=== PATIENT | male | born 1990 | race Two or more races ===

== ENCOUNTER 2019-10-22 22:13 | Inpatient (IN) | payer MEDICAID, OTHER ==
[~2019-10-22] VITALS: Ht 160 cm; Wt 68.9 kg
--- NOTE | 2019-10-22 22:35 | NUR ---
PT AAOX4. BIBRA IVORIAN SPEAKING. PER RA PT HAS HX OF DIABETIES, CIRRHOSIS, AND ASCITES. PT C/O ABD DISTENTION AND "NEEDS TO BE DRAINED" NO ACUTE DISTRESS NOTED. MD AT BEDSIDE FOR EVAL. AWAITING ORDERS.
--- NOTE | 2019-10-22 22:48 | NUR ---
PHLEBTOMIST AT BEDSIDE FOR LABS
[2019-10-22 22:50] LABS: BASOPHILS % (AUTO) 0.5 % (0.0-2.0); EOSINOPHILS % (AUTO) 0.3 % (0.0-6.0); HEMATOCRIT 29 % (39-51); HEMOGLOBIN 9.1 g/dL (13.5-17.5); LYMPHOCYTES # (AUTO) 0.6 /CMM (0.8-4.8); LYMPHOCYTES % (AUTO) 12.8 % (20.0-44.0); MEAN CORPUSCULAR HGB CONC 32 g/dl (31.0-36.0); MEAN CORPUSCULAR VOLUME 102 fL (80-96); MONOCYTES # (AUTO) 0.2 /CMM (0.1-1.30); MONOCYTES % (AUTO) 4.3 % (2.0-12.0); NEUTROPHILS # (AUTO) 3.6 /CMM (1.8-8.9); NEUTROPHILS % (AUTO) 82.1 % (43.0-81.0); PLATELET COUNT (AUTO) 190 /CMM (150-450); RED BLOOD CELL COUNT(AUTO) 2.83 MIL/uL (4.5-6.0); WHITE BLOOD COUNT (AUTO) 4.3 K/uL (4.3-11.0)
--- NOTE | 2019-10-22 22:52 | NUR ---
AWAITING COVID SWAB. CALLED LAB.
--- NOTE | 2019-10-22 23:03 | NUR ---
BROUGHT TO CT
[2019-10-22 23:04] LABS: SERUM AMMONIA 115 umol/L (11-32)
[2019-10-22 23:07] LABS: APPEARANCE,URINE Clear (CLEAR); BILIRUBIN,URINE Negative (NEGATIVE); BLOOD, URINE Large Ery/uL (NEGATIVE); COLOR,URINE Yellow (YELLOW); KETONES,URINE Negative (NEGATIVE); LEUKOCYTE ESTERASE ,URINE Negative (NEGATIVE); NITRITE, URINE Negative (NEGATIVE); PH,URINE 5.5 (5.0-8.0); PROTEIN,URINE >=300 mg/dl (NEGATIVE); UGLUCOSE 500 MG/DL mg/dL (NEGATIVE); UROBILINOGEN,URINE 0.2 EU/dL (0.2)
[2019-10-22 23:08] LABS: CALCIUM, SERUM 7.9 mg/dL (8.5-10.1); CARBON DIOXIDE 13 mmol/L (21-32); CHLORIDE 98 mmol/L (98-107); CREATININE 3.6 mg/dL (0.6-1.3); POTASSIUM 4.9 mmol/L (3.5-5.1); SODIUM SERUM 125 mmol/L (136-145); UREA NITROGEN, BLOOD 61 mg/dL (7-18)
[2019-10-22 23:13] LABS: GLUCOSE 834 mg/dL (74-106)
[2019-10-22 23:15] LABS: ALANINE AMINOTRANSFERASE 39 U/L (12-78); ALBUMIN 1.7 g/dL (3.4-5.0); ALKALINE PHOSPHATASE 243 U/L (46-116); ASPARTATE AMINOTRANSFERASE 31 U/L (15-37); BILIRUBIN,DIRECT 0.1 mg/dL (0.0-0.2); BILIRUBIN,TOTAL 0.4 mg/dL (0.2-1.0); LIPASE 114 U/L (73-393); TOTAL PROTEIN, SERUM 6.1 g/dL (6.4-8.2)
[2019-10-22] MEDS ORDERED: INSULIN REGULAR, HUMAN 100 UNIT/ML 10 ML VIAL ONE (23:16)
--- NOTE | 2019-10-22 23:27 | NUR ---
BROUGHT BACK FROM CT
--- NOTE | 2019-10-22 23:29 | NUR ---
COVID SWAB SENT TO LAB
[2019-10-22] MEDS ORDERED: INSULIN REGULAR, HUMAN 100 UNIT in IV NS 0.9% 99 ML IV PRN ×2 (23:30)
[2019-10-22] MEDS ORDERED: INSULIN REGULAR, HUMAN 100 UNIT/ML 10 ML VIAL IV ONE (23:30)
[2019-10-22] MEDS ORDERED: IV NS 0.9% 1,000 ML BAG IV ONE (23:30)
[2019-10-22 23:31] LABS: BACTERIA,URINE Rare /HPF (None Seen); RBC,URINE 21-50 /HPF (0-2); SQUAMOUS EPITHELIAL CELL,UR Few /HPF (None Seen); WBC,URINE NONE SEEN /HPF (0-3)
--- NOTE | 2019-10-22 23:37 | NUR ---
UNABLE TO RECAL MEDS
[2019-10-23] VITALS (26 sets, daily range): BP systolic 99–132; BP diastolic 57–95
--- NOTE | 2019-10-23 00:12 | NUR ---
SECOND LINE ESTABLISHED ON L FOREARM 20G. AWAITING FOR BG CHECK @ 0030 TO START INSULIN DRIP.
--- NOTE | 2019-10-23 00:30 | NUR ---
BG 593 MD AWARE
[2019-10-23] MEDS ORDERED: INSULIN REGULAR, HUMAN 100 UNIT/ML 10 ML VIAL ONE (00:37)
--- NOTE | 2019-10-23 00:50 | NUR ---
593X2/100=11.86. AWARE TO START AT 12 UNITS/HR.
[2019-10-23] MEDS ORDERED: ACETAMINOPHEN 325 MG TABLET PO PRN (01:00)
[2019-10-23] MEDS ORDERED: Z GUARD REMEDY 2 OZ OINT TP PRN (01:00)
[2019-10-23] MEDS ORDERED: ONDANSETRON HCL/PF 4 MG/2 ML VIAL IVP PRN (01:00)
[2019-10-23] MEDS ORDERED: ALBUMIN 25% 12.5 GM/50 ML BOTTLE IV ONE (01:02)
--- NOTE | 2019-10-23 01:05 | NUR ---
REPORT GIVEN TO MARIA L FIGUEROA FOR ANDREA
--- NOTE | 2019-10-23 01:20 | NUR ---
PT TRANSFERED PER ACLS PROTOCOL
[2019-10-23] MEDS: INSULIN REGULAR, HUMAN 100 UNIT in IV NS 0.9% 99 ML IV PRN ×4 (01:30→11:18)
--- NOTE | 2019-10-23 01:30 | NUR ---
RECEIVED PATIENT IN NO ACUTE DISTRESS IN BED. PATIENT TRANSFERRED TO BED AND TOLERATED WELL. PATIENT HAS DISTENDED ABDOMEN WITH UMBILICUS HERNIA NOTED. PATIENT ON RA AND TOLERATING WELL. A/O X 4 AND ABLE TO MAKE NEEDS KNOWN. PATIENT HAS RIGHT AC 20G AND LEFT FOREARM 20G WITH INSULIN INFUSING AT 12 UNITS PER HOUR FROM ER. PER DR. SHAH WE ARE TO FOLLOW FORMULA OF BS X 2 / 100 = INSULIN RATE. BED IN LOW LOCK POSITION WITH RAILS UP X 2. WILL CONTINUE TO MONITOR.
[2019-10-23] MEDS: RIFAXIMIN 550 MG TABLET PO SCH ×3 (01:59→16:37)
[2019-10-23] MEDS: BLOOD SUGAR DIAGNOSTIC 1 EACH STRIP IN SCH ×20 (02:11→22:15)
[2019-10-23 02:41] LABS: CALCIUM, SERUM 8.1 mg/dL (8.5-10.1); CREATININE 3.6 mg/dL (0.6-1.3); PHOSPHORUS 5.2 mg/dL (2.5-4.9); POTASSIUM 4.2 mmol/L (3.5-5.1)
--- NOTE | 2019-10-23 03:00 | NUR ---
DR. SHAH PERFORMED PARACENTESIS ON THE LEFT ABDOMEN WITH TOTAL OF 7.5 LITERS OF YELLOW CLOUDY FLUID. PER DR. SHAH 1 BOTTLE SENT TO LAB FOR TESTING. PATIENT TOLERATED PROCEDURE WELL.
[2019-10-23] MEDS ORDERED: PHENYLEPHRINE 10 MG/ML VIAL ONE (03:06)
[2019-10-23] MEDS ORDERED: IV PREMIX NS +20MEQ KCL 1 L IV ONE (04:04)
[2019-10-23] MEDS: Potassium Chloride 20 MEQ in IV NS 0.9% 1,000 ML IV PRN ×2 (04:18→12:23)
[2019-10-23 05:00] LABS: CALCIUM, SERUM 8.6 mg/dL (8.5-10.1); CREATININE 3.7 mg/dL (0.6-1.3); MAGNESIUM 2.1 mg/dL (1.8-2.4); PHOSPHORUS 5.1 mg/dL (2.5-4.9); POTASSIUM 4.1 mmol/L (3.5-5.1)
--- NOTE | 2019-10-23 07:35 | NUR ---
REVENUE MANAGER: pt. A/Ox2/Danish speaker, basis Colombian level, no c/o now, no pain/dolor, abdomen is soft, O2sat. over 96%, SR, SBP WNL, on Insulin gtt f/u rate formula BGx2/100/6 units/hr now, accuV q1h, voids, NPO/water ok
--- NOTE | 2019-10-23 07:57 | NUR ---
med recon nurse notes pt south korean speaking only, ask pt with a educational psychology professor if he takes any medications and he says he does, but doesn't remember the names and no one is home as stated. pt teaching provided with south korean staff translating to write down his list of medications and put it in his wallet.
[2019-10-23] MEDS: ENOXAPARIN SODIUM 30 MG/0.3 ML DISP.SYRIN SQ SCH (08:21)
[2019-10-23 08:30] LABS: CALCIUM, SERUM 8.3 mg/dL (8.5-10.1); CREATININE 3.5 mg/dL (0.6-1.3); MAGNESIUM 1.8 mg/dL (1.8-2.4); PHOSPHORUS 4.9 mg/dL (2.5-4.9); POTASSIUM 3.9 mmol/L (3.5-5.1)
--- NOTE | 2019-10-23 09:35 | NUR ---
TECHNICAL OPERATIONS MANAGER: is in room/updated with pt.current condition, VS, BG/insulin gtt rate/accuV q1h, I/O, paracentesis, NPO, see new orders
[2019-10-23 11:56] LABS: CALCIUM, SERUM 8.2 mg/dL (8.5-10.1); CREATININE 3.2 mg/dL (0.6-1.3); MAGNESIUM 1.9 mg/dL (1.8-2.4); PHOSPHORUS 4.5 mg/dL (2.5-4.9); POTASSIUM 3.9 mmol/L (3.5-5.1)
--- NOTE | 2019-10-23 12:00 | NUR ---
ROVING INSPECTOR: NPO status, ok for water, got 200ml water
--- NOTE | 2019-10-23 13:50 | NUR ---
CHISELER HEAD: updated with pt.last 3 hrs B/122/120, Insulin gtt rate, IVF, NPO/pt is asking to start diet, labs, AGap , BMP at 14,17,05, ordered: add D5 to IVF, if Anion Gap below 14, start: one dose Lantus 20 units s/q, , stop Insulin drip, start accuV AC&HS with aggressive ISS, start diabetic diet
[2019-10-23 15:00] LABS: CALCIUM, SERUM 8.1 mg/dL (8.5-10.1); CREATININE 3.2 mg/dL (0.6-1.3); MAGNESIUM 1.8 mg/dL (1.8-2.4); PHOSPHORUS 4.4 mg/dL (2.5-4.9); POTASSIUM 4.1 mmol/L (3.5-5.1)
--- NOTE | 2019-10-23 15:30 | NUR ---
OILFIELD PLANT AND FIELD OPERATOR: BG 99, GAP 19, called pharmacy to get D5NS with K 20 meq bag, notified , hold insulin gtt now
[2019-10-23] MEDS: Potassium Chloride 20 MEQ in IV D5/ 0.9% NACL 1,000 ML IV PRN (15:37)
--- NOTE | 2019-10-23 16:15 | NUR ---
OIL RECOVERY UNIT OPERATOR: V0TMors started 40 mins ago, BG157 now, paged to resume Insulin gtt?, pt.is A/Ox4, got info re POC, orders, meds with Persian translation, no c/o now, no pain, SR, SBP over 100/[id number], O2sat. over 96%
[2019-10-23 17:24] LABS: CALCIUM, SERUM 7.7 mg/dL (8.5-10.1); CREATININE 3.2 mg/dL (0.6-1.3); MAGNESIUM 1.7 mg/dL (1.8-2.4); PHOSPHORUS 4.5 mg/dL (2.5-4.9)
--- NOTE | 2019-10-23 17:54 | NUR ---
AIRPLANE GAS TANK LINER ASSEMBLER: pt refused for PM/skin care/bedbath
--- NOTE | 2019-10-23 19:30 | NUR ---
RN OPENING NOTES received the cleit resting in bed. VS wnl. On external telemonitor, NSR. RA, sat 100%, BG 142, the client is in insulin drip. D5 NS & K/20meq. No signs of hypo/hyper glycemia. The client denies pain, no s/s of pain. No s/s of distress. All safety mechanisms in place will continue to monitor.
[2019-10-23 20:38] LABS: CALCIUM, SERUM 7.8 mg/dL (8.5-10.1); CREATININE 3.1 mg/dL (0.6-1.3); MAGNESIUM 1.7 mg/dL (1.8-2.4); PHOSPHORUS 4.3 mg/dL (2.5-4.9)
[2019-10-23 22:19] LABS: APPEARANCE,URINE SL CLOUDY (CLEAR); BILIRUBIN,URINE NEGATIVE (NEGATIVE); BLOOD, URINE LARGE Ery/uL (NEGATIVE); COLOR,URINE YELLOW (YELLOW); KETONES,URINE NEGATIVE (NEGATIVE); LEUKOCYTE ESTERASE ,URINE NEGATIVE (NEGATIVE); NITRITE, URINE NEGATIVE (NEGATIVE); PROTEIN,URINE >=300 mg/dl (NEGATIVE); UGLUCOSE 500 MG/DL mg/dL (NEGATIVE); UROBILINOGEN,URINE 0.2 EU/dL (0.2)
[2019-10-23 22:32] LABS: CREATININE, URINE 93.6 MG/DL (30.0-125.0)
[2019-10-23 22:58] LABS: EOSINOPHIL,URINE None Seen
[2019-10-23 23:19] LABS: BACTERIA,URINE Few /HPF (None Seen); RBC,URINE 20-25 /HPF (0-2); SQUAMOUS EPITHELIAL CELL,UR Rare /HPF (None Seen)
[2019-10-23 23:26] LABS: URINE TOTAL PROTEIN 1867.3 mg/dL (0-11.9)
[2019-10-24] VITALS (26 sets, daily range): BP systolic 91–127; BP diastolic 39–88
[2019-10-24] MEDS: BLOOD SUGAR DIAGNOSTIC 1 EACH STRIP IN SCH ×24 (00:08→23:10)
[2019-10-24] MEDS: Potassium Chloride 20 MEQ in IV D5/ 0.9% NACL 1,000 ML IV PRN ×3 (00:26→17:42)
[2019-10-24 00:56] LABS: CALCIUM, SERUM 7.7 mg/dL (8.5-10.1); CREATININE 3.1 mg/dL (0.6-1.3); MAGNESIUM 1.8 mg/dL (1.8-2.4); PHOSPHORUS 4.4 mg/dL (2.5-4.9); POTASSIUM 4.1 mmol/L (3.5-5.1)
[2019-10-24 03:26] LABS: CALCIUM, SERUM 7.6 mg/dL (8.5-10.1); CREATININE 3.1 mg/dL (0.6-1.3); MAGNESIUM 1.7 mg/dL (1.8-2.4); PHOSPHORUS 4.4 mg/dL (2.5-4.9); POTASSIUM 4.3 mmol/L (3.5-5.1)
[2019-10-24 05:10] LABS: BASOPHILS % (AUTO) 0.8 % (0.0-2.0); EOSINOPHILS % (AUTO) 1.4 % (0.0-6.0); HEMATOCRIT 25 % (39-51); HEMOGLOBIN 8.2 g/dL (13.5-17.5); LYMPHOCYTES # (AUTO) 1.4 /CMM (0.8-4.8); LYMPHOCYTES % (AUTO) 33.4 % (20.0-44.0); MEAN CORPUSCULAR HGB CONC 33 g/dl (31.0-36.0); MEAN CORPUSCULAR VOLUME 97 fL (80-96); MONOCYTES # (AUTO) 0.2 /CMM (0.1-1.30); MONOCYTES % (AUTO) 5.2 % (2.0-12.0); NEUTROPHILS # (AUTO) 2.4 /CMM (1.8-8.9); NEUTROPHILS % (AUTO) 59.2 % (43.0-81.0); PLATELET COUNT (AUTO) 145 /CMM (150-450); RED BLOOD CELL COUNT(AUTO) 2.62 MIL/uL (4.5-6.0); WHITE BLOOD COUNT (AUTO) 4.1 K/uL (4.3-11.0)
[2019-10-24 05:25] LABS: ALBUMIN 1.7 g/dL (3.4-5.0); BILIRUBIN,TOTAL 0.4 mg/dL (0.2-1.0); CALCIUM, SERUM 7.7 mg/dL (8.5-10.1); MAGNESIUM 1.9 mg/dL (1.8-2.4); PHOSPHORUS 4.3 mg/dL (2.5-4.9); POTASSIUM 4.3 mmol/L (3.5-5.1); TOTAL PROTEIN, SERUM 4.9 g/dL (6.4-8.2)
--- NOTE | 2019-10-24 06:52 | NUR ---
RN CLOSING NOTES No change of condition during the shift. continues in insulin drip. AG gap is 16. No s/s of hypo or hyperglycemia. no s/s of distress. Will endorse the next shift for ANDREA.
--- NOTE | 2019-10-24 08:00 | NUR ---
DEDICATED LOCAL TRUCK DRIVER: pt.is A/Ox3, no c/o now, no pain, oriented for fall/injury prevention measures, SR, SBP [id number], O2sat.over 95% on RA, last q1h BG 3 results: 123/109/106, still on insulin drip, last Anion GAP: 16, will continue BMP,MG,Phos f/u prev.orders/waiting MD, getting C4POyovl 20meq K@125ml/h, multiple voids by report, NPO status except water
[2019-10-24] MEDS: ENOXAPARIN SODIUM 30 MG/0.3 ML DISP.SYRIN SQ SCH (08:49)
[2019-10-24] MEDS: RIFAXIMIN 550 MG TABLET PO SCH ×2 (08:49→17:20)
[2019-10-24] MEDS: INSULIN REGULAR, HUMAN 100 UNIT in IV NS 0.9% 99 ML IV PRN ×2 (09:10)
--- NOTE | 2019-10-24 09:50 | NUR ---
CLEAN OUT DRILLER HELPER: called to pharmacy to get D5NS with K bag, PT is in room for eval/Tx
[2019-10-24 10:03] LABS: CALCIUM, SERUM 7.9 mg/dL (8.5-10.1); CREATININE 2.9 mg/dL (0.6-1.3); MAGNESIUM 1.8 mg/dL (1.8-2.4); PHOSPHORUS 4.5 mg/dL (2.5-4.9); POTASSIUM 4.5 mmol/L (3.5-5.1)
--- NOTE | 2019-10-24 13:59 | NUR ---
CHEMICAL TREATMENT PLANT TECHNICIAN: pt. is rest, no c/o now, no pain, SR, SBP WNL, O2sat. over 97%, still NPO, asking to start diet, getting D5NS with KCl 20 meq@150ml/hr, waiting , still on Insulin gtt, last 3 B/133/120, last GAP 17, Ammonia 138, blood gram+ cocci in clusters, will s/w
--- NOTE | 2019-10-24 15:30 | NUR ---
ECLECTIC DOCTOR: is in room/unit, updated with pt.current condition, VS, I/O, labs, ammonia 186, GAP results, meds, Insulin drip, IVF: [id number] 20meqKcl@150ml/h, NPO status, pt.multiple Qs to get food, blood gram+ cocci in clusters, said: continue NPO, ok ti give strict water, ordered: change IVF to 100ml/hr, BMP,MG,Phos q3h, if GAP below 14 follow miscellaneous order from 10/22
--- NOTE | 2019-10-24 15:31 | NUR ---
TRANSIT CLERK: : continue same formula Insulin drip
--- NOTE | 2019-10-24 15:40 | NUR ---
MEDICINE WORKER: Pt.got explanation with Cuban translation re POC, orders, continue NPO status, meds, lab results
[2019-10-24 15:49] LABS: CALCIUM, SERUM 7.7 mg/dL (8.5-10.1); CREATININE 2.8 mg/dL (0.6-1.3); MAGNESIUM 1.8 mg/dL (1.8-2.4); PHOSPHORUS 4.4 mg/dL (2.5-4.9); POTASSIUM 4.6 mmol/L (3.5-5.1)
--- NOTE | 2019-10-24 16:50 | NUR ---
VIDEO GAME ENGINEER: Lactulose 10mg PO PRN q6h in eMAR, paged : confirmed start same dose/time, ammonia level 186
--- NOTE | 2019-10-24 16:51 | NUR ---
TEXTILE FINISHER: prev.note correction: Lactulose 20gm
[2019-10-24] MEDS: LACTULOSE 10 G/15 ML UDC (PYXIS) PO PRN (17:20)
--- NOTE | 2019-10-24 17:50 | NUR ---
ROENTGENOLOGIST: pt.is rest, no c/o, no pain, SR, SBP WNL, O2sat. over 97%, voids, refused for PM/bedbath care, elevated legs d/t edema
[2019-10-24 19:33] LABS: CALCIUM, SERUM 7.9 mg/dL (8.5-10.1); MAGNESIUM 1.7 mg/dL (1.8-2.4); PHOSPHORUS 4.6 mg/dL (2.5-4.9); POTASSIUM 4.5 mmol/L (3.5-5.1)
--- NOTE | 2019-10-24 19:41 | NUR ---
RN OPENING NOTES The client remains stable with BG at 89 at 1800, and 103 at 1900. client is A/O x4. Client exhibits no s/s of hypo or hyperglycemia, no s/s/ of digress or pain, client denies pain at this time. Client is on RA, sat 98% to 100%. VS wnl, client is on external telemonitor, NSR, HR 77. The client continues in insulin drip, with an anion gap goal of 14 per hospitalist. Will continue to monitor, all safety mechanisms in place. Will continue to monitor. Bed locked in the lowest position, call light within reach, and armoring machine operator rails up x2.
[2019-10-24] MEDS ORDERED: Potassium Chloride 20 MEQ in IV NS 0.9% 1,000 ML IV PRN (22:00)
--- NOTE | 2019-10-24 23:00 | NUR ---
per Dr Vaca, start D10 to increase glucose levels. The order is in the eEMAR.
[2019-10-24] MEDS: IV PREMIX NS +20MEQ KCL 1 L IV SCH (23:10)
[2019-10-24] MEDS: IV 10% DEXTROSE 1,000 ML IV PRN (23:16)
[2019-10-24 23:24] LABS: CALCIUM, SERUM 7.6 mg/dL (8.5-10.1); CREATININE 2.9 mg/dL (0.6-1.3); PHOSPHORUS 4.7 mg/dL (2.5-4.9); POTASSIUM 4.6 mmol/L (3.5-5.1)
[2019-10-25] VITALS (24 sets, daily range): BP systolic 104–138; BP diastolic 54–93
[2019-10-25] MEDS: BLOOD SUGAR DIAGNOSTIC 1 EACH STRIP IN SCH ×26 (00:23→23:15)
[2019-10-25 02:00] LABS: CALCIUM, SERUM 7.5 mg/dL (8.5-10.1); CREATININE 2.8 mg/dL (0.6-1.3); MAGNESIUM 1.7 mg/dL (1.8-2.4); PHOSPHORUS 4.6 mg/dL (2.5-4.9); POTASSIUM 4.7 mmol/L (3.5-5.1)
[2019-10-25] MEDS: LACTULOSE 10 G/15 ML UDC (PYXIS) PO PRN ×2 (04:40→10:53)
[2019-10-25 05:28] LABS: BASOPHILS % (AUTO) 0.6 % (0.0-2.0); HEMATOCRIT 27 % (39-51); HEMOGLOBIN 8.9 g/dL (13.5-17.5); LYMPHOCYTES # (AUTO) 1.4 /CMM (0.8-4.8); LYMPHOCYTES % (AUTO) 29.4 % (20.0-44.0); MEAN CORPUSCULAR HGB CONC 33 g/dl (31.0-36.0); MEAN CORPUSCULAR VOLUME 97 fL (80-96); MONOCYTES # (AUTO) 0.3 /CMM (0.1-1.30); MONOCYTES % (AUTO) 5.7 % (2.0-12.0); NEUTROPHILS # (AUTO) 2.9 /CMM (1.8-8.9); NEUTROPHILS % (AUTO) 62.3 % (43.0-81.0); PLATELET COUNT (AUTO) 183 /CMM (150-450); RED BLOOD CELL COUNT(AUTO) 2.79 MIL/uL (4.5-6.0); WHITE BLOOD COUNT (AUTO) 4.6 K/uL (4.3-11.0)
[2019-10-25 05:43] LABS: CALCIUM, SERUM 7.8 mg/dL (8.5-10.1); CREATININE 2.8 mg/dL (0.6-1.3); MAGNESIUM 1.8 mg/dL (1.8-2.4); PHOSPHORUS 4.6 mg/dL (2.5-4.9); POTASSIUM 4.6 mmol/L (3.5-5.1)
--- NOTE | 2019-10-25 06:22 | NUR ---
RN NOTES The client refused to have his 0600 blood glucose check.
[2019-10-25 07:23] LABS: MAGNESIUM 1.8 mg/dL (1.8-2.4); PHOSPHORUS 4.7 mg/dL (2.5-4.9)
--- NOTE | 2019-10-25 07:30 | NUR ---
RECEIVED PATIENT IN BED. NO ACUTE DISTRESS NOTED. PATIENT ALERT & ORIENTED X4. PATIENT ON ROOM AIR, SATURATING WELL AT 100%, BREATHING EVEN AND UNLABORED. PATIENT ON AUTO CLOCKS REPAIRER, SINUS RHYTHM NOTED WITH HEART RATE IN 70S. PATIENT NPO STATUS OBSERVED. PATIENT R. FOREARM IV ACCESS INTACT, PATENT, FLUSHED WELL. PATIENT INSULIN DRIP RUNNING AT 2.6UNITS/HR, WILL CONTINUE TO DO HOURLY ACCUCHECK AND TITRATE ORDERED. PATIENT SAFETY MAINTAINED. CALL LIGHT WITHIN REACH. WILL CONTINUE TO MONITOR.
--- NOTE | 2019-10-25 07:37 | NUR ---
RN CLOSING NOTES No change of condition at this time. Client remains stable with s/s of distress. last BG were 127,144, 137. Client continues in insulin drip per hospitalist order. A complete report has been given to the incoming nurse for the plan of care. All safety mechanisms in place.
[2019-10-25] MEDS: ENOXAPARIN SODIUM 30 MG/0.3 ML DISP.SYRIN SQ SCH (08:10)
[2019-10-25] MEDS: RIFAXIMIN 550 MG TABLET PO SCH ×2 (08:10→17:01)
[2019-10-25] MEDS: INSULIN REGULAR, HUMAN 100 UNIT in IV NS 0.9% 99 ML IV PRN ×2 (09:48)
[2019-10-25] MEDS: IV PREMIX NS +20MEQ KCL 1 L IV SCH (10:53)
[2019-10-25] MEDS: IV 10% DEXTROSE 1,000 ML IV PRN ×2 (13:02→22:36)
--- NOTE | 2019-10-25 13:39 | NUR ---
ACCUCHECK MACHINE NOT TRANSFERRING DATA (BLOOD GLUCOSE LEVELS) TO THE COMPUTER (LABS SECTION). LAB NOTIFIED, IT NOTIFIED- SPOKE TO JENNIFER CRAIG AT IT. TICKET #[id number]. AWAITING CALL BACK Addendum: 10/25/19 at 1341 by RAMA LANDRY RN AMEND- BLOOD GLUCOSE LEVELS RECORDED IN IV SPREADSHEET, WELL ON PERSONAL PAPER.
[2019-10-25 15:00] LABS: CALCIUM, SERUM 7.9 mg/dL (8.5-10.1); CREATININE 2.7 mg/dL (0.6-1.3); POTASSIUM 4.8 mmol/L (3.5-5.1)
--- NOTE | 2019-10-25 15:13 | NUR ---
MOLD ENGRAVER NOTE DR MOORE AT BEDSIDE, AWARE THAT ANION GAP 18, ON INSULIN DRIP, ON IVF D10W AT 75 ML AND NS WITH 20 MEQ KCL , STATED OK TO CONT TO ADMINISTER, AWAITING FOR BMP RESULT ,WILL RELAY RESULT TO DR MOORE
--- NOTE | 2019-10-25 15:46 | NUR ---
MARKETING ASSISTANT NOTE NOTIFIED TO DR MOORE THAT ANION GAP IS 19 FOR 1430 ,NO NEW ORDER GIVEN AT THIS TIME ALSO ASSISTED TO BSC ,ABLE TO MAKE BM, KEEP CLEAN DRY , ALL NEEDS ATTENDED ,NOT IN DISTRESS
--- NOTE | 2019-10-25 16:49 | NUR ---
PATIENT AMMONIA LEVEL OF 146. DR. MOORE NOTIFIED. DR. MOORE ORDERED LACTULOSE PRN TO BE CHANGED TO LACTULOSE SCHEDULED, Q6H
[2019-10-25] MEDS: LACTULOSE 10 G/15 ML UDC (PYXIS) PO SCH ×2 (17:01→23:17)
--- NOTE | 2019-10-25 18:26 | NUR ---
PATIENT IN BED. NO ACUTE DISTRESS NOTED. PATIENT ALERT & ORIENTED X4. PATIENT ON ROOM AIR, SATURATING WELL AT 100%, BREATHING EVEN AND UNLABORED. PATIENT ON FIREWORKS ASSEMBLY SUPERVISOR, SINUS RHYTHM NOTED WITH HEART RATE IN 90S. PATIENT NPO STATUS OBSERVED. PATIENT RIGHT FOREARM IV ACCESS INTACT, PATENT, FLUSHED WELL. PATIENT LEFT FOREARM IV ACCESS INTACT, PATENT, FLUSHED WELL. PATIENT INSULIN DRIP RUNNING AT 2.6UNITS/HR, WILL CONTINUE TO DO HOURLY ACCUCHECK AND TITRATE ORDERED. PATIENT SAFETY MAINTAINED. CALL LIGHT WITHIN REACH. WILL ENDORSE PLAN OF CARE TO ONCOMING NURSE FOR CONTINUITY OF CARE.
--- NOTE | 2019-10-25 19:25 | NUR ---
EMS DRIVER NOTES Received pt resting in bed. AOx4. Able to make needs know. On external telemonitor, NSR. RA, sat 100% on RA. RAC and LFA piv lines intact and flushes well, w/ insulin drip and D10 and NS & K/20meq. No signs of hypo/hyper glycemia. The client denies pain, no s/s of pain. NAD. no SOB. All safety measures in place. Bed locked and in the lowest position. Will continue to monitor.
--- NOTE | 2019-10-25 21:20 | NUR ---
PER Sakina SHAH DNP TO START CCHO W/45G DIET 2139: PER PABLO DNP TO INCREASE D10 IVF TO 100ML/HR FROM 75ML/HR
[2019-10-26] VITALS (24 sets, daily range): BP systolic 106–128; BP diastolic 64–96
[2019-10-26] MEDS: BLOOD SUGAR DIAGNOSTIC 1 EACH STRIP IN SCH ×24 (01:00→23:14)
[2019-10-26] MEDS: IV PREMIX NS +20MEQ KCL 1 L IV SCH ×2 (01:01→14:31)
[2019-10-26] MEDS: IV 10% DEXTROSE 1,000 ML IV PRN ×2 (03:18→17:01)
[2019-10-26] MEDS: LACTULOSE 10 G/15 ML UDC (PYXIS) PO SCH ×4 (06:01→23:40)
--- NOTE | 2019-10-26 07:15 | NUR ---
RN OPENING NOTE Received patient asleep in bed appears calm and relaxed no signs of distress. On room air tolerating well. Patient is AO x4 khmer speaking but understands a little bit of Russian. No co pain or discomfort. Tele monitor reading ST 100-110 bpm. Bedside commode noted. Has RAC running KCL 20meq on NS @ 75ml/hr and D10 @ 100ml/hr. LAC running Regular Insulin @ 4u/hr. Safety measures reinforced. Call light within reach. Bed locked and on lowest position. Will cont to monitor.
[2019-10-26 08:38] LABS: BASOPHILS % (AUTO) 0.8 % (0.0-2.0); EOSINOPHILS % (AUTO) 2.1 % (0.0-6.0); HEMATOCRIT 28 % (39-51); HEMOGLOBIN 8.8 g/dL (13.5-17.5); LYMPHOCYTES # (AUTO) 1.3 /CMM (0.8-4.8); LYMPHOCYTES % (AUTO) 27.4 % (20.0-44.0); MEAN CORPUSCULAR HGB CONC 32 g/dl (31.0-36.0); MEAN CORPUSCULAR VOLUME 98 fL (80-96); MONOCYTES # (AUTO) 0.3 /CMM (0.1-1.30); MONOCYTES % (AUTO) 5.9 % (2.0-12.0); NEUTROPHILS # (AUTO) 2.9 /CMM (1.8-8.9); NEUTROPHILS % (AUTO) 63.8 % (43.0-81.0); PLATELET COUNT (AUTO) 199 /CMM (150-450); RED BLOOD CELL COUNT(AUTO) 2.83 MIL/uL (4.5-6.0); WHITE BLOOD COUNT (AUTO) 4.6 K/uL (4.3-11.0)
[2019-10-26] MEDS: ENOXAPARIN SODIUM 30 MG/0.3 ML DISP.SYRIN SQ SCH ×2 (08:55→09:00)
[2019-10-26] MEDS: RIFAXIMIN 550 MG TABLET PO SCH ×2 (08:55→17:05)
--- NOTE | 2019-10-26 09:00 | NUR ---
NPO STATUS PUT ORDERED
[2019-10-26 09:25] LABS: CALCIUM, SERUM 7.9 mg/dL (8.5-10.1); CREATININE 2.8 mg/dL (0.6-1.3); POTASSIUM 4.8 mmol/L (3.5-5.1)
[2019-10-26] MEDS ORDERED: INSU100V7 SQ (13:31)
[2019-10-26] MEDS ORDERED: [UNRECOGNIZED DRUG - CODE] PO (13:31)
[2019-10-26] MEDS ORDERED: BLOO-538 (13:31)
[2019-10-26] MEDS ORDERED: [UNRECOGNIZED DRUG - OTHER] PO (13:31)
[2019-10-26] MEDS ORDERED: MULT-439 PO (13:31)
--- NOTE | 2019-10-26 14:00 | NUR ---
PARACENTESIS ORDERED BY DR MOORE. PLACED ORDER AND SPOKE TO ULTRASOUND. CONSENT WAS SIGNED. 5250ML REMOVED FROM ABDOMEN. TOLERATED WELL. VITAL SIGNS WITHIN NORMAL LIMITS.
--- NOTE | 2019-10-26 14:15 | NUR ---
PER TERESA NO NEED TO SUBMIT SPECIMEN TO LABS
[2019-10-26] MEDS: INSULIN REGULAR, HUMAN 100 UNIT in IV NS 0.9% 99 ML IV PRN ×2 (16:11)
--- NOTE | 2019-10-26 18:50 | NUR ---
RN CLOSING NOTE Patient asleep in bed appears calm and relaxed no signs of distress. On room air tolerating well. Patient is AO x4 arabic speaking but understands a little bit of Cape Verdean. No co pain or discomfort. Tele monitor reading ST 90-100 bpm. All due meds given vital signs within normal limits. RAC running KCL 20meq on NS @ 75ml/hr and D10 @ 100ml/hr. LAC running Regular Insulin @ 3u/hr. Latest BS at 1800 is 171. No signs of uncontrolled blood sugar. Maintained within normal limits. Remained on NPO status. Anion Gap 15. Safety measures reinforced. Call light within reach. Bed locked and on lowest position. Will endorse to retail shift manager nurse.
--- NOTE | 2019-10-26 19:20 | NUR ---
UTILITIES AND MAINTENANCE SUPERVISOR NOTES Received pt resting in bed. AOx4. Able to make needs know. On external telemonitor, NSR. RA, sat 100% on RA. RAC and LFA PIV lines intact and flush well w/ insulin gtt and D10 and NS & K/20meq. No signs of hypo/hyper glycemia. The client denies pain, no s/s of pain. NAD. no SOB. All safety measures in place. Bed locked and in the lowest position. Will continue to monitor.
[2019-10-27] VITALS (22 sets, daily range): BP systolic 60–159; BP diastolic 39–85
[2019-10-27] MEDS: BLOOD SUGAR DIAGNOSTIC 1 EACH STRIP IN SCH ×20 (00:01→22:53)
[2019-10-27] MEDS: IV 10% DEXTROSE 1,000 ML IV PRN ×2 (04:00→13:54)
[2019-10-27] MEDS: IV PREMIX NS +20MEQ KCL 1 L IV SCH ×2 (04:01→17:02)
[2019-10-27 05:19] LABS: BASOPHILS % (AUTO) 0.9 % (0.0-2.0); EOSINOPHILS % (AUTO) 2.4 % (0.0-6.0); HEMATOCRIT 26 % (39-51); HEMOGLOBIN 8.5 g/dL (13.5-17.5); LYMPHOCYTES # (AUTO) 1.3 /CMM (0.8-4.8); LYMPHOCYTES % (AUTO) 31.6 % (20.0-44.0); MEAN CORPUSCULAR HGB CONC 33 g/dl (31.0-36.0); MEAN CORPUSCULAR VOLUME 98 fL (80-96); MONOCYTES # (AUTO) 0.3 /CMM (0.1-1.30); MONOCYTES % (AUTO) 6.6 % (2.0-12.0); NEUTROPHILS # (AUTO) 2.3 /CMM (1.8-8.9); NEUTROPHILS % (AUTO) 58.5 % (43.0-81.0); PLATELET COUNT (AUTO) 159 /CMM (150-450); RED BLOOD CELL COUNT(AUTO) 2.66 MIL/uL (4.5-6.0)
[2019-10-27] MEDS: LACTULOSE 10 G/15 ML UDC (PYXIS) PO SCH ×3 (06:00→17:52)
[2019-10-27 06:26] LABS: CALCIUM, SERUM 7.7 mg/dL (8.5-10.1); CREATININE 2.7 mg/dL (0.6-1.3); MAGNESIUM 1.8 mg/dL (1.8-2.4); PHOSPHORUS 4.7 mg/dL (2.5-4.9); POTASSIUM 4.5 mmol/L (3.5-5.1)
[2019-10-27 08:20] LABS: *SPE A/G RATIO 0.7 (0.7-1.7); *SPE ALBUMIN 1.8 g/dL (2.9-4.4); *SPE ALPHA-1-GLOBULIN 0.2 g/dL (0.0-0.4); *SPE ALPHA-2-GLOBULIN 0.8 g/dL (0.4-1.0); *SPE BETA GLOBULIN 0.9 g/dL (0.7-1.3); *SPE GLOBULIN, TOTAL 2.7 g/dL (2.2-3.9); *SPE M-SPIKE 0.1 g/dL (Not Observed); *SPEGAMMA GLOBULIN 0.8 g/dL (0.4-1.8)
--- NOTE | 2019-10-27 08:20 | NUR ---
DIRECTOR CALL NOTES PATIENT IN BED A/OX4 NORTH KOREAN SPEAKER, UNDERSTANDS DOMINICAN. NO ISOLATION. NO SOB AND DISCOMFORT NOTED AT THIS TIME. DISTENDED ABDOMEN NOTED. PATIENT IS ON INSULIN DRIP, 10% DEXTROSE, POTASSIUM CHLORIDE. HR 79 SINUS RHYTHM. CALL LIGHT WITHIN REACH. BED AT THE LOWEST POSITION LOCKED. WILL CONTINUE TO MONITOR THE PATIENT.
[2019-10-27 09:07] LABS: COMPLEMENT C3, SERUM 90 mg/dL (82-167); COMPLEMENT C4, SERUM 24 mg/dL (14-44)
[2019-10-27] MEDS: ENOXAPARIN SODIUM 30 MG/0.3 ML DISP.SYRIN SQ SCH (09:12)
[2019-10-27] MEDS: RIFAXIMIN 550 MG TABLET PO SCH ×2 (09:12→17:02)
--- NOTE | 2019-10-27 10:40 | NUR ---
LAMINATING PRESS OPERATOR NOTES PT AT BED SIDE AND PATIENT WAS ABLE TO STAND UP AND SEAT ON THE COMMODE .
[2019-10-27] MEDS: INSULIN REGULAR, HUMAN 100 UNIT in IV NS 0.9% 99 ML IV PRN ×2 (11:07)
[2019-10-27 11:25] LABS: CALCIUM, SERUM 7.7 mg/dL (8.5-10.1); CREATININE 2.6 mg/dL (0.6-1.3); POTASSIUM 4.6 mmol/L (3.5-5.1)
[2019-10-27 16:57] LABS: CALCIUM, SERUM 7.8 mg/dL (8.5-10.1); CREATININE 2.6 mg/dL (0.6-1.3); POTASSIUM 4.6 mmol/L (3.5-5.1)
--- NOTE | 2019-10-27 17:10 | NUR ---
RECRUITMENT MANAGER NOTES INFORMED HOSPITALIST ROBERT ABOUT ANION GAP 10. PER HOSPITALIST AGGRESSIVE SSU AND CC DIET.
--- NOTE | 2019-10-27 17:27 | NUR ---
JEWELRY DIPPER NOTES PER TREAD CUTTER ROBERT, D5NS 75ML/HR AND KCL 75ML /HR.
[2019-10-27] MEDS: IV D5/ 0.9% NACL 1,000 ML IV PRN ×2 (17:39→18:17)
--- NOTE | 2019-10-27 18:00 | NUR ---
CULTURE MEDIA LABORATORY ASSISTANT NOTES REGULAR INSULIN NOT AVAILABLE, NEW ORDER, REPORTED TO 3W NURSE ROMANO TO OBTAIN THE INSULIN FROM PHARMACY.
[2019-10-27 18:15] LABS: *ANA ANTI-CENTROMERE B AB <0.2 AI (0.0-0.9); *ANA ANTI-DNA(DS) AB, QN 1 IU/mL (0-9); *ANA ANTI-JO-1 <0.2 AI (0.0-0.9); *ANA ANTICHROMATIN ANTIBODY <0.2 AI (0.0-0.9); *ANA RNP ANTIBODIES <0.2 AI (0.0-0.9); *ANA SJOGREN'S ANTI-SS-A <0.2 AI (0.0-0.9); *ANA SJOGREN'S ANTI-SS-B <0.2 AI (0.0-0.9); *ANAANTI-SCLERODERMA-70 AB <0.2 AI (0.0-0.9); *ANASMITH AB <0.2 AI (0.0-0.9)
--- NOTE | 2019-10-27 18:33 | NUR ---
TAIL BOARD MAN NOTES REPORT GIVEN TO ROSALINA Cortez NURSE PATIENT WILL BE TRANSFERRED TO ROOM 316.
--- NOTE | 2019-10-27 18:35 | NUR ---
CAR REPAIRER PULLMAN NOTES PATIENT SAFELY TRANSFERRED TO 3W BY RN , ALL BELONGINGS RETURNED TO THE PATIENT.
--- NOTE | 2019-10-27 19:02 | NUR ---
SANE NURSE NOTES RECEIVED TRANSFER FROM ICU AND REPORT. PATIENT IN MEDICALLY STABLE CONDITION. WILL ENDORSE TO CLINCHING MACHINE OPERATOR NURSE.
--- NOTE | 2019-10-27 19:45 | NUR ---
RN NOTES RECEIVED PATIENT, WEAK, RESTING COMFORTABLY IN BED, NO SIGNS OF ACUTE RESPIRATORY OR CARDIAC DISTRESS, SAFETY MEASURES IN PLACE, INSTRUCTED PATIENT TO USE CALL LIGHT FOR ASSISTANCE GOING TO THE TOILET OR BEDSIDE COMMODE. ALL NEEDS ANTICIPATED. WILL CONTINUE TO MONITOR ACCORDINGLY.
[2019-10-27] MEDS ORDERED: [UNRECOGNIZED DRUG - OTHER] PO SCH (22:00)
[2019-10-27] MEDS: INSULIN GLARGINE, 100 UNIT/ML CARTRIDGE SQ SCH (22:49)
[2019-10-27] MEDS: *INSULIN REGULAR(HUMULIN R)HUM 100 UNIT/ML VIAL SQ PRN (22:50)
[2019-10-28] VITALS (8 sets, daily range): BP systolic 86–130; BP diastolic 53–91
[2019-10-28] MEDS: LACTULOSE 10 G/15 ML UDC (PYXIS) PO SCH ×4 (00:15→18:11)
[2019-10-28 00:42] LABS: CALCIUM, SERUM 7.5 mg/dL (8.5-10.1); CREATININE 2.7 mg/dL (0.6-1.3); POTASSIUM 4.7 mmol/L (3.5-5.1)
[2019-10-28] MEDS: IV PREMIX NS +20MEQ KCL 1 L IV SCH (06:42)
[2019-10-28] MEDS: BLOOD SUGAR DIAGNOSTIC 1 EACH STRIP IN SCH ×4 (06:51→22:00)
[2019-10-28] MEDS: INSULIN REGULAR, HUMAN 100 UNIT/ML 3 ML VIAL SQ PRN (06:52)
--- NOTE | 2019-10-28 06:56 | NUR ---
RN NOTES ALL NEEDS ATTENDED AND MET, ABLE TO REST AND SLEPT AT INTERVALS, SAFETY MEASURES IN PLACE, ASPIRATION PRECAUTION EMPHASIZED, KEPT CLEAN WARM DRY AND COMFORTABLE, ASSISTED USING BEDSIDE COMMODE, TOILETING AND URINAL AT BEDSIDE. CALL LIGHT WITHIN EASY REACH, BED IN LOW LOCKED POSITION. WILL ENDORSE TO AM NURSE FOR CONTINUITY OF CARE.
--- NOTE | 2019-10-28 08:02 | NUR ---
RN CLOSING NOTE Patient AAOX4 in bed appears calm and relaxed no signs of distress. On room air tolerating well. Icelandic speaking but understands a little bit of Kiswahili. No c/o pain or discomfort. Tele monitor . vital signs within normal limits. RAC running KCL 20meq on NS @ 75ml/hr and D10 @ 100ml/hr. Latest BS at 216. No signs of uncontrolled blood sugar. Maintained within normal limits. on CCHO diet. Anion . Safety measures reinforced. Call light within reach. Bed locked and on lowest position. Will continue to monitor.
[2019-10-28 08:08] LABS: CALCIUM, SERUM 7.8 mg/dL (8.5-10.1); CREATININE 2.6 mg/dL (0.6-1.3); MAGNESIUM 1.7 mg/dL (1.8-2.4); PHOSPHORUS 4.9 mg/dL (2.5-4.9); POTASSIUM 4.7 mmol/L (3.5-5.1)
[2019-10-28 08:21] LABS: BASOPHILS # (AUTO) 0.1 /CMM (0.0-0.2); BASOPHILS % (AUTO) 0.9 % (0.0-2.0); EOSINOPHILS % (AUTO) 1.8 % (0.0-6.0); HEMATOCRIT 28 % (39-51); HEMOGLOBIN 8.9 g/dL (13.5-17.5); LYMPHOCYTES # (AUTO) 1.1 /CMM (0.8-4.8); LYMPHOCYTES % (AUTO) 20.9 % (20.0-44.0); MEAN CORPUSCULAR HGB CONC 32 g/dl (31.0-36.0); MEAN CORPUSCULAR VOLUME 99 fL (80-96); MONOCYTES # (AUTO) 0.3 /CMM (0.1-1.30); MONOCYTES % (AUTO) 5.9 % (2.0-12.0); NEUTROPHILS # (AUTO) 3.8 /CMM (1.8-8.9); NEUTROPHILS % (AUTO) 70.5 % (43.0-81.0); PLATELET COUNT (AUTO) 175 /CMM (150-450); RED BLOOD CELL COUNT(AUTO) 2.79 MIL/uL (4.5-6.0); WHITE BLOOD COUNT (AUTO) 5.4 K/uL (4.3-11.0)
[2019-10-28] MEDS ORDERED: Medication Not On Formulary EA (Multivitamins W-Minerals (One Daily Complete) 1 EACH) PO SCH (09:00)
[2019-10-28] MEDS ORDERED: IV NS 0.9% 1,000 ML IV SCH (09:30)
[2019-10-28] MEDS: RIFAXIMIN 550 MG TABLET PO SCH ×2 (09:41→17:51)
[2019-10-28] MEDS: MULTIVIT W/MINERALS 1 TAB TABLET PO SCH (09:41)
[2019-10-28] MEDS: ENOXAPARIN SODIUM 30 MG/0.3 ML DISP.SYRIN SQ SCH (09:48)
[2019-10-28] MEDS: INSULIN GLARGINE, 100 UNIT/ML CARTRIDGE SQ SCH ×2 (09:57→22:06)
[2019-10-28] MEDS: *INSULIN REGULAR(HUMULIN R)HUM 100 UNIT/ML VIAL SQ PRN ×3 (11:53→22:09)
[2019-10-28] MEDS: CITRIC ACID/SODIUM CITRATE (BICITRA)15 ML UDC PO SCH ×2 (17:51→20:37)
[2019-10-28 18:09] LABS: ABG PCO2 19.3 mmHg (35.0-45.0); ABG PH 7.193 (7.350-7.450); ABG PO2 104.2 mmHg (75.0-100.0); AaDO2 22.4 mmHg; COHb 0.3 % (0.5-1.5); O2Hb 96.7 % (94.0-97.0); SITE, ABG Right Radial
--- NOTE | 2019-10-28 18:50 | NUR ---
RN CLOSING NOTE Patient AAOX4 in bed appears calm and relaxed no signs of distress. On room air tolerating well. Greek speaking . No c/o pain or discomfort. Tele monitor . vital signs within normal limits. RAC running on NS 0.9% @ 75ml/hr . BS CHECK as order. No signs of uncontrolled blood sugar. Insulin given per sliding scale Pt had an ABG done with Critical results reported to Dr with no new order at this time . on [facility] diet. Safety measures reinforced. Call light within reach. Bed locked and on lowest position. Will continue to monitor.
--- NOTE | 2019-10-28 19:07 | NUR ---
APARTMENT RENTAL AGENT NOTES Notified Bridgette HARKINS of critical ABG labs results. Per , NNO at this time.
--- NOTE | 2019-10-28 19:38 | NUR ---
RN NOTES RECEIVED PATIENT, WEAK, RESTING COMFORTABLY IN BED, NO SIGNS OF ACUTE RESPIRATORY OR CARDIAC DISTRESS, SAFETY MEASURES IN PLACE, INSTRUCTED PATIENT TO USE CALL LIGHT FOR ASSISTANCE GOING TO THE TOILET OR BEDSIDE COMMODE. IV ACCESS INTACT AND PATENT. ALL NEEDS ANTICIPATED. WILL CONTINUE TO MONITOR ACCORDINGLY.
--- NOTE | 2019-10-28 21:10 | NUR ---
RN NOTES REPORT GIVEN TO CRYSTAL DELANEY FOR CONTINUITY OF CARE. PATIENT IS RESTING COMFORTABBLY AT THIS TIME SAFETY MEASURES IN PLACE. ALL NEEDS ANTICIPATED.
--- NOTE | 2019-10-28 21:30 | NUR ---
tele director of accreditation notes Received report from another nurse Chey and seen pt in bed for continuity of care. not in any distress noted at this time. denies any pain or any discomfort. kept him warm and comfortable at all times. will continue monitoring. place call light at reach.
--- NOTE | 2019-10-28 22:12 | NUR ---
tele end finder twisting department notes blood sugar 191, 3 units of insulin kayla sq as ordered. no signs of hyper /hpo glycemia noted. will continue monitoring.
[2019-10-29] VITALS: BP 116/85
--- NOTE | 2019-10-29 | NUR ---
AUDIO/VISUAL MANAGER NOTES PT SLEPT THIS TIME WITHOUT ANY DISTRESS NOTED. RESPIRATION EVEN AND NON-LABORED. KEPT HIM WARM AND COMFORTABLE AT ALL TIMES. PLACE CALL LIGHT AT REACH. WILL CONTINUE MONITORING.
[2019-10-29] MEDS: LACTULOSE 10 G/15 ML UDC (PYXIS) PO SCH ×4 (00:16→17:52)
[2019-10-29 04:00] VITALS: BP 144/87
[2019-10-29 06:39] LABS: BASOPHILS # (AUTO) 0.1 /CMM (0.0-0.2); BASOPHILS % (AUTO) 1.3 % (0.0-2.0); EOSINOPHILS % (AUTO) 1.6 % (0.0-6.0); HEMATOCRIT 27 % (39-51); HEMOGLOBIN 8.7 g/dL (13.5-17.5); LYMPHOCYTES # (AUTO) 1.2 /CMM (0.8-4.8); LYMPHOCYTES % (AUTO) 18.6 % (20.0-44.0); MEAN CORPUSCULAR HGB CONC 32 g/dl (31.0-36.0); MEAN CORPUSCULAR VOLUME 99 fL (80-96); MONOCYTES # (AUTO) 0.4 /CMM (0.1-1.30); MONOCYTES % (AUTO) 6.5 % (2.0-12.0); NEUTROPHILS # (AUTO) 4.6 /CMM (1.8-8.9); PLATELET COUNT (AUTO) 154 /CMM (150-450); RED BLOOD CELL COUNT(AUTO) 2.77 MIL/uL (4.5-6.0); WHITE BLOOD COUNT (AUTO) 6.4 K/uL (4.3-11.0)
[2019-10-29] MEDS: BLOOD SUGAR DIAGNOSTIC 1 EACH STRIP IN SCH ×4 (06:41→21:00)
[2019-10-29] MEDS: INSULIN REGULAR, HUMAN 100 UNIT/ML 3 ML VIAL SQ PRN ×3 (06:51→17:52)
[2019-10-29 06:52] LABS: MAGNESIUM 1.8 mg/dL (1.8-2.4); PHOSPHORUS 5.5 mg/dL (2.5-4.9); POTASSIUM 4.7 mmol/L (3.5-5.1)
[2019-10-29 07:03] LABS: THYROID STIMULATING HORMONE 10.169 uIU/mL (0.358-3.74)
--- NOTE | 2019-10-29 07:15 | NUR ---
tele flight tower dispatcher closing notes pt resting comfortably in bed after he drink one cup of coffee. blood sugar checked done 168, 3 units of insulin given as ordered. no signs of hypo/ hyper glycemia noted. all due meds given as ordered. all needs met.Tele SR per monitor. Stable throughout the night and slept well. Place call light at reach. will endorse to am nurse for continuity of care.
--- NOTE | 2019-10-29 07:35 | NUR ---
TELE/RN NOTE THE PATIENT IS RECEIVED IN BED. PATIENT IS ALERT AND ORIENTED X3. IN ROOM AIR AND DENIES SOB. RESPIRATION REGULAR AND UNLABORED. DENIES PAIN. THE PATIENT IN NO APPARENT DISTRESS. EXTERNAL TELE BOX READING IS SR 95. RAC G 18 PATENT AND SALINE LOCKED, LFA G 20 PATENT AND NORMAL SALINE INFUSING AT 75ML/HR. NO S/S INFILTRATION NOTED. BED LOW AND LOCKED. SIDE RAILS UP X3. CALL LIGHT WITHIN REACH. WILL CONTINUE TO MONITOR.
--- NOTE | 2019-10-29 10:13 | NUR ---
TELE/RN NOTE 0900 DUE MEDICATIONS ARE NOT GIVEN YET DUE TO PATIENT GETTING IMAGING DONE AT THE RADIOLOGY DEPARTMENT. WILL ADMINISTER THE MEDICATIONS SOON THE PATIENT IS IN THE UNIT.
[2019-10-29] MEDS: MULTIVIT W/MINERALS 1 TAB TABLET PO SCH (10:26)
[2019-10-29] MEDS: FOLIC ACID 1 MG TABLET PO SCH (10:27)
[2019-10-29] MEDS: RIFAXIMIN 550 MG TABLET PO SCH ×2 (10:27→17:52)
[2019-10-29] MEDS: CITRIC ACID/SODIUM CITRATE (BICITRA)15 ML UDC PO SCH ×4 (10:27→20:53)
--- NOTE | 2019-10-29 10:27 | NUR ---
TELE/RN NOTE THE PATIENT IS BACK FROM RADIOLOGY DEPARTMENT AND IN STABLE CONDITION. WILL ADMINISTER MORNING MEDICATIONS.
[2019-10-29] MEDS: ENOXAPARIN SODIUM 30 MG/0.3 ML DISP.SYRIN SQ SCH (10:42)
[2019-10-29] MEDS: INSULIN GLARGINE, 100 UNIT/ML CARTRIDGE SQ SCH ×2 (10:42→20:54)
--- NOTE | 2019-10-29 11:14 | NUR ---
TELE/RN NOTE SHAILESH JONES IS MADE AWARE OF CO2 LEVEL OF 10. PER STRUCTURAL STEEL TRADES WORKER NO NEW ORDERS.
[2019-10-29] MEDS ORDERED: RIFAXIMIN 550 MG TABLET PO SCH (17:00)
--- NOTE | 2019-10-29 18:49 | NUR ---
TELE/RN NOTE THE PATIENT ALERT AND ORIENTED X3. DENIES PAIN. IN ROOM AIR AND SATURATION IS AT 96%. DENIES SOB. RESPIRATION REGULAR AND UNLABORED. RAC G 20 AND LFA G 20 BOTH PATENT AND SALINE LOCKED. BED LOW AND LOCKED. SIDE RAILS UP X3. CALL LIGHT WITHIN REACH. WILL ENDORSE TO NUCLEAR WORKER TECHNICIAN. Addendum: 10/29/19 at 1906 by CRISTY HAMEED RN TELE/RN NOTE TELE BOX READING IS SR 100.
--- NOTE | 2019-10-29 19:27 | NUR ---
TELE/RN OPENING NOTES RECEIVED PATIENT IN BED, AWAKE, ALERT X2, REQUIRE ORIENTATION AND SAFETY REMINDERS FOR ANY CHANGES. WITH SITTER, ON ROOM AIR, BED LOCKED, CALL LIGHTS WITHIN REACH, WITH [facility] MONITOR,RECEIVED ENDORSEMENT FROM AM RN FOR ANDREA,
--- NOTE | 2019-10-29 19:32 | NUR ---
TELE/RN NOTES ON TELE ST 103, PATIENT ASSISTED TO BATHROOM, ABLE TO WALK WITH ASSIST, ABDOMEN DISTENDED.
[2019-10-29 20:00] VITALS: BP 129/88
--- NOTE | 2019-10-29 20:44 | NUR ---
BLOOD SUGAR CHECK AT 174, PATIENT HAD DINNER,
[2019-10-30] VITALS: BP 124/76
[2019-10-30] MEDS: LACTULOSE 10 G/15 ML UDC (PYXIS) PO SCH ×6 (00:29→21:00)
[2019-10-30 04:00] VITALS: BP 114/76
--- NOTE | 2019-10-30 05:11 | NUR ---
TELE/RN NOTES PATIENT VERBALIZED UNDERSTANDING ON IMPORTANCE OF COMPLIANCE TO MEDICATION, PATIENT REPORTED THAT HE HAS BEEN CONSTANTLY GOING TO THE BATHROOM SEVERAL TIMES ALREADY TO HAVE BM AND WOULD PREFER TO TAKE IT A LITTLE LATER IN AM. ASLEEP AND RESTING COMFORTABLY.
[2019-10-30] MEDS: BLOOD SUGAR DIAGNOSTIC 1 EACH STRIP IN SCH ×4 (06:08→22:05)
[2019-10-30 06:29] LABS: BASOPHILS # (AUTO) 0.1 /CMM (0.0-0.2); EOSINOPHILS % (AUTO) 1.8 % (0.0-6.0); HEMATOCRIT 25 % (39-51); HEMOGLOBIN 7.8 g/dL (13.5-17.5); LYMPHOCYTES # (AUTO) 1.8 /CMM (0.8-4.8); LYMPHOCYTES % (AUTO) 29.7 % (20.0-44.0); MEAN CORPUSCULAR HGB CONC 32 g/dl (31.0-36.0); MEAN CORPUSCULAR VOLUME 98 fL (80-96); MONOCYTES # (AUTO) 0.5 /CMM (0.1-1.30); MONOCYTES % (AUTO) 7.9 % (2.0-12.0); NEUTROPHILS # (AUTO) 3.6 /CMM (1.8-8.9); NEUTROPHILS % (AUTO) 59.6 % (43.0-81.0); PLATELET COUNT (AUTO) 143 /CMM (150-450); RED BLOOD CELL COUNT(AUTO) 2.52 MIL/uL (4.5-6.0)
--- NOTE | 2019-10-30 06:31 | NUR ---
310-1 TELE/RN NOTES ATTENDED TO ALL NEEDS, MONITORED FOR SAFETY, BED LOCKED, CALL LIGHTS WITHIN REACH. WILL ENDORSE TO AM RN FOR ANDREA.
[2019-10-30 06:47] LABS: CALCIUM, SERUM 7.6 mg/dL (8.5-10.1); CREATININE 3.1 mg/dL (0.6-1.3); MAGNESIUM 1.9 mg/dL (1.8-2.4); PHOSPHORUS 5.7 mg/dL (2.5-4.9); POTASSIUM 4.3 mmol/L (3.5-5.1)
--- NOTE | 2019-10-30 07:30 | NUR ---
RN NOTES RECEIVED PATIENT IN BED RESTING COMFORTABLY IN MODERATE HIGH BACK REST. A/O X2. ON RA, TOLERATING WELL. NO SIGNS OF DISTRESS NOTED AT THIS TIME, IV ACCESS ON RAC#20 AND LFA #20, PATENT AND INTACT. ON TELE MONITOR WITH CURRENT READING OF ST WITH HR OF 100'S. SAFETY MEASURES IN PLACE, BED IN LOWEST LOCKED POSITION, CALL LIGHTS WITHIN REACH, WILL CONTINUE TO MONITOR.
[2019-10-30 08:00] VITALS: BP 129/84
[2019-10-30] MEDS: RIFAXIMIN 550 MG TABLET PO SCH ×2 (08:45→16:55)
[2019-10-30] MEDS: MULTIVIT W/MINERALS 1 TAB TABLET PO SCH (08:45)
[2019-10-30] MEDS: CITRIC ACID/SODIUM CITRATE (BICITRA)15 ML UDC PO SCH ×5 (08:45→21:57)
[2019-10-30] MEDS: FOLIC ACID 1 MG TABLET PO SCH (08:45)
[2019-10-30] MEDS: HEPARIN SODIUM, PORCINE 5000 UNITS/1 ML VIAL SQ SCH ×2 (08:49→21:57)
[2019-10-30] MEDS: INSULIN GLARGINE, 100 UNIT/ML CARTRIDGE SQ SCH ×2 (08:49→22:07)
[2019-10-30 09:06] LABS: AFP, TUMOR MARKER 1.8 ng/mL (0.0-8.3)
--- NOTE | 2019-10-30 11:00 | NUR ---
RN NOTES SEEN AND EXAMINED BY INNA JONES NP. ORDER TO GIVE LACTULOSE ENEMA, ORDERS MADE AND CARRIED OUT. WILL CONTINUE TO MONITOR.
[2019-10-30] MEDS ORDERED: LACTULOSE 10 G/15 ML UDC (PYXIS) PO SCH (11:30)
[2019-10-30] MEDS ORDERED: LACTULOSE UDC 200 G in SODIUM CHLORIDE IRRIG SOLUTION 400 ML IR ONE (12:00)
--- NOTE | 2019-10-30 12:41 | NUR ---
RN NOTES PATIENT REFUSED LACTULOSE ENEMA, AND NOON MEDS. INNA JONES NP MADE AWARE. WILL CONTINUE TO MONITOR.
[2019-10-30 16:00] VITALS: BP 129/88
[2019-10-30] MEDS: INSULIN REGULAR, HUMAN 100 UNIT/ML 3 ML VIAL SQ PRN (16:58)
--- NOTE | 2019-10-30 16:58 | NUR ---
RN NOTES PATIENT REFUSED BICITRA AND LACTULOSE, EXPLAINED RISKS AND BENEFITS BUT STILL PATIENT REFUSED, HOSPITALIST MADE AWARE. WILL CONTINUE TO MONITOR.
--- NOTE | 2019-10-30 19:19 | NUR ---
RN NOTES PATIENT IN BED RESTING COMFORTABLY IN MODERATE HIGH BACK REST. A/O X2. ON RA, TOLERATING WELL. NO SIGNS OF DISTRESS NOTED THROUGHOUT THE SHIFT, IV ACCESS ON RAC#20 AND LFA #20, PATENT AND INTACT. SAFETY MEASURES IN PLACE, BED IN LOWEST LOCKED POSITION, CALL LIGHTS WITHIN REACH, WILL ENDORSE TO COMMERCIAL PHOTOGRAPHER NURSE FOR ANDREA.
--- NOTE | 2019-10-30 19:20 | NUR ---
MS/RN OPENING NOTES: RECEIVED PATIENT IN BED RESTING COMFORTABLY IN BED. A/O X2. ON RA, TOLERATING WELL. NO SIGNS OF DISTRESS NOTED AT THIS TIME, IV ACCESS ON RAC#20 AND LFA #20, PATENT AND INTACT. NO COMPLAINS OF PAIN AT THIS TIME. SAFETY MEASURES IN PLACE, BED IN LOWEST LOCKED POSITION, CALL LIGHTS WITHIN REACH, WILL CONTINUE TO MONITOR.
[2019-10-30 20:00] VITALS: BP 130/83
[2019-10-30] MEDS: MORPHINE SULFATE INJ 2 MG/ML DISP.SYRIN IV PRN (22:08)
--- NOTE | 2019-10-30 22:08 | NUR ---
MS/RN NOTES: PT COMPLAINED OF PAIN ON HIS MANDO. LEGS. VSS. ADMINISTERED MORPHINE 2MG IVP ORDERED FOR PAIN. WILL CONTINUE TO MONITOR ACCORDINGLY.
--- NOTE | 2019-10-31 00:31 | NUR ---
MS/RN NOTES: REPORT GIVEN TO HENRY [place] FOR ANDREA. PT STABLE.
--- NOTE | 2019-10-31 00:44 | NUR ---
RN NOTES: -AT 222O RECEIVED ENDORSEMENT FROM KAVITA/RN, PATIENT WAS LYING COMFORTABLY IN BED, HE JUST HAD HIS MORPHINE AT 2208, A/OX3-4, KYRGYZ SPEAKING ONLY. ABLE TO COMMUNICATE WITH LITTLE SCOTTISH, IV SITE PATENT ON RAC G#20 AND LFA G#20, HE HAS DISTENDED ABDOMEN.WITH BRP, USING URINAL, ORIENTED TO UNIT AND STAFF,FALL SAFETY AND ASPIRATION OBSERVED, BED LOW AND LOCKED, CALL LIGHT KEPT WITHIN EASY REACH.
--- NOTE | 2019-10-31 04:04 | NUR ---
RN NOTES: ASLEEP IN THE NIGHT, NO CALLS MADE, KEPT ON CLOSE WATCH, CALL LIGHT WITHIN EASY REACH.NO PAIN OR DISCOMFORT.
[2019-10-31 06:00] LABS: BASOPHILS % (AUTO) 0.4 % (0.0-2.0); EOSINOPHILS % (AUTO) 0.6 % (0.0-6.0); HEMATOCRIT 26 % (39-51); HEMOGLOBIN 8.2 g/dL (13.5-17.5); LYMPHOCYTES # (AUTO) 1.3 /CMM (0.8-4.8); LYMPHOCYTES % (AUTO) 13.2 % (20.0-44.0); MEAN CORPUSCULAR HGB CONC 32 g/dl (31.0-36.0); MEAN CORPUSCULAR VOLUME 98 fL (80-96); MONOCYTES # (AUTO) 0.7 /CMM (0.1-1.30); MONOCYTES % (AUTO) 6.8 % (2.0-12.0); NEUTROPHILS # (AUTO) 7.8 /CMM (1.8-8.9); PLATELET COUNT (AUTO) 171 /CMM (150-450); RED BLOOD CELL COUNT(AUTO) 2.62 MIL/uL (4.5-6.0); WHITE BLOOD COUNT (AUTO) 9.8 K/uL (4.3-11.0)
[2019-10-31] MEDS: DEXTROSE 50%-WATER 50 ML DISP.SYRIN IV PRN (06:40)
--- NOTE | 2019-10-31 07:03 | NUR ---
RN NOTES: 0635- BLOOD SUGAR CHECKED 44, PATIENT IS A/OX3-4, GIVEN 3 ORANGE JUICE, REPEATED RBS-47, BLOOD SUGAR DID NOT IMPROVE AT ALL, GIVEN D50% 50 ML IV, TOLERATED, BLOOD SUGAR RE-CHECKED AFTER 15 MIN RBS-196, BULK TANK [employer] DOCTOR JACQUELINE NOTIFIED.
[2019-10-31] MEDS: BLOOD SUGAR DIAGNOSTIC 1 EACH STRIP IN SCH ×4 (07:42→21:41)
--- NOTE | 2019-10-31 07:44 | NUR ---
RN NOTES: PATIENT GO BACK TO SLEEP, AWAITING FOR HIS BREAKFAST TO BE SERVED, ENDORSED FOR CONTINUITY OF CARE AND OBSERVED FOR SIGN OF HYPO/HYPERGLYCEMIA, STILL WITH BOARD LIKE ABDOMEN, HARD TO TOUCH AND DISTENDED., FOR BLOOD TEST THIS MORNING, TO REPEAT LACTULOSE AND RIFAXIMIN IN THE MORNING, RD F/U ON 11/03/19.
[2019-10-31 08:00] VITALS: BP 118/78
[2019-10-31] MEDS: MORPHINE SULFATE INJ 2 MG/ML DISP.SYRIN IV PRN ×2 (08:10→11:16)
--- NOTE | 2019-10-31 08:10 | NUR ---
MS RN NOTES PATIENT REPORTS PAIN TO RIGHT THIGH AND GROIN AREA 10/10 PRN MORPHINE ADMINISTERED, WILL CONTINUE TO MONITOR.
--- NOTE | 2019-10-31 08:40 | NUR ---
MS RN NOTES PATIENT REPORTS PAIN HAS DECREASED AND NOW TOLERABLE. WILL CONTINUE TO MONITOR.
[2019-10-31] MEDS: INSULIN GLARGINE, 100 UNIT/ML CARTRIDGE SQ SCH ×2 (09:00→21:00)
[2019-10-31] MEDS: LACTULOSE 10 G/15 ML UDC (PYXIS) PO SCH ×4 (09:00→21:41)
[2019-10-31] MEDS: MULTIVIT W/MINERALS 1 TAB TABLET PO SCH (09:16)
[2019-10-31] MEDS: CITRIC ACID/SODIUM CITRATE (BICITRA)15 ML UDC PO SCH ×4 (09:16→21:43)
[2019-10-31] MEDS: FOLIC ACID 1 MG TABLET PO SCH (09:16)
[2019-10-31] MEDS: RIFAXIMIN 550 MG TABLET PO SCH ×2 (09:16→17:18)
[2019-10-31] MEDS: HEPARIN SODIUM, PORCINE 5000 UNITS/1 ML VIAL SQ SCH ×2 (09:17→21:42)
[2019-10-31 10:25] LABS: CALCIUM, SERUM 7.6 mg/dL (8.5-10.1); CREATININE 3.4 mg/dL (0.6-1.3); MAGNESIUM 1.9 mg/dL (1.8-2.4); PHOSPHORUS 5.8 mg/dL (2.5-4.9)
--- NOTE | 2019-10-31 10:40 | NUR ---
RN NOTES PATIENT COMPLAINS PAIN RO RIGHT THIGH AGAIN 01/15. INNA CASH MADE AWARE WAITING FOR ORDERS.
--- NOTE | 2019-10-31 11:15 | NUR ---
RN NOTES PATIENT SEEN AND EVALUATED BY DR. UMAÑA ORDERS FOR ST OF THE RIGHT HIP. INNA CASH ORDERED ULTRASOUND OF THE ABD. AND PELVIS. ORDERS NOTED AND CARRIED OUT.
--- NOTE | 2019-10-31 14:30 | NUR ---
MS RN NOTES INNA CASH MADE AWARE OF ABDOMINAL ULTRASOUND RESULTS AND HIP CT RESULTS ORDERS TO ORDER STAT PARACENTESIS.
[2019-10-31 16:00] VITALS: BP_SYST 133; BP_SYST 145; BP_DIAS 79; BP_DIAS 81
--- NOTE | 2019-10-31 18:33 | NUR ---
MS RN NOTES PATIENT IN BED RESTING NO SOB OR ACUTE DISTRESS NOTED. PATIENT ALERT, ORIENTED X4. ALL DUE MEDICATIONS ADMINISTERED. ALL NEEDS MET. PATIENT S/P PARACENTESIS WITH 5L OUTPUT. PATIENT REPORTS FEELING BETTER. NO ACUTE CHANGES NOTED DURING AM SHIFT. WILL ENDORSE CARE TO PM SHIFT.
[2019-10-31 20:00] VITALS: BP 113/67
--- NOTE | 2019-10-31 20:00 | NUR ---
MS RN OPENING NOTE: Received patient resting in bed comfortably. Patient denies pain or discomfort. On Room air; no SOB. Patient is in no signs of distress. Breathing is equal and unlabored. Noted IV access on right AC #20 gauge and Left forearm 20 gauge. Both IV sites flushes well, patent, no redness, or infiltration. Safety measures in place. Bed in lowest level, brakes are on, side rails x2 are up, and call light is within reach. Will continue to monitor and continue care of plan.
--- NOTE | 2019-10-31 21:00 | NUR ---
MS RN NOTE: Patient glucose level is 90. Held Lantus to prevent hypoglycemia.
[2019-10-31] MEDS: *INSULIN REGULAR(HUMULIN R)HUM 100 UNIT/ML VIAL SQ PRN (23:12)
--- NOTE | 2019-11-01 03:16 | NUR ---
MS RN NOTE: Patient temp 101.1. Gave patient ice water and PRN Tylenol for fever. Will follow up and monitor.
--- NOTE | 2019-11-01 04:16 | NUR ---
MS RN NOTE: Reassessed patients temperature. Temp 98.8.
--- NOTE | 2019-11-01 06:40 | NUR ---
MS RN CLOSING NOTE: Patient in bed resting comfortably, awake and alert. On Room air; no SOB. Patient is in no signs of distress. Breathing is equal and unlabored. Safety measures in place. Bed in lowest level, brakes are on, side rails x2 are up, and call light is within reach. Will endorse to morning shift.
--- NOTE | 2019-11-01 06:57 | NUR ---
MS RN NOTE: Patient glucose 66. Gave patient orange juice. Will monitor and recheck.
[2019-11-01] MEDS: BLOOD SUGAR DIAGNOSTIC 1 EACH STRIP IN SCH ×4 (06:58→22:08)
[2019-11-01] MEDS: INSULIN REGULAR, HUMAN 100 UNIT/ML 3 ML VIAL SQ PRN ×3 (06:58→17:35)
[2019-11-01] MEDS ORDERED: LIDOCAINE 1% INJ 50 ML MDV IJ ONE (07:00)
--- NOTE | 2019-11-01 07:20 | NUR ---
MS RN NOTE: Rechecked glucose. Glucose 109. Endorsed Glucose levels to the next shift.
[2019-11-01 07:31] LABS: CALCIUM, SERUM 7.5 mg/dL (8.5-10.1); CREATININE 4.2 mg/dL (0.6-1.3); MAGNESIUM 1.7 mg/dL (1.8-2.4); POTASSIUM 4.4 mmol/L (3.5-5.1)
[2019-11-01 07:44] LABS: BASOPHILS % (AUTO) 0.5 % (0.0-2.0); EOSINOPHILS % (AUTO) 0.5 % (0.0-6.0); HEMATOCRIT 21 % (39-51); LYMPHOCYTES # (AUTO) 1.9 /CMM (0.8-4.8); LYMPHOCYTES % (AUTO) 21.6 % (20.0-44.0); MEAN CORPUSCULAR HGB CONC 33 g/dl (31.0-36.0); MEAN CORPUSCULAR VOLUME 98 fL (80-96); MONOCYTES # (AUTO) 0.5 /CMM (0.1-1.30); MONOCYTES % (AUTO) 5.9 % (2.0-12.0); NEUTROPHILS # (AUTO) 6.2 /CMM (1.8-8.9); NEUTROPHILS % (AUTO) 71.5 % (43.0-81.0); PLATELET COUNT (AUTO) 117 /CMM (150-450); RED BLOOD CELL COUNT(AUTO) 2.12 MIL/uL (4.5-6.0); WHITE BLOOD COUNT (AUTO) 8.7 K/uL (4.3-11.0)
--- NOTE | 2019-11-01 08:00 | NUR ---
MS RN NOTES PATIENT IN BED RESTING NO SOB OR ACUTE DISTRESS NOTED. PATIENT ALERT, ORIENTED X4. PERIPHERAL IV INTACT PATENT. BED IN LOW LOCKED POSITION. WILL CONTINUE TO MONITOR.
[2019-11-01 08:08] VITALS: BP 101/47
[2019-11-01] MEDS: INSULIN GLARGINE, 100 UNIT/ML CARTRIDGE SQ SCH ×2 (09:00→21:41)
[2019-11-01] MEDS: RIFAXIMIN 550 MG TABLET PO SCH ×2 (09:02→18:23)
[2019-11-01] MEDS: FOLIC ACID 1 MG TABLET PO SCH (09:02)
[2019-11-01] MEDS: MULTIVIT W/MINERALS 1 TAB TABLET PO SCH (09:02)
[2019-11-01] MEDS: CITRIC ACID/SODIUM CITRATE (BICITRA)15 ML UDC PO SCH ×4 (09:03→21:42)
[2019-11-01] MEDS: LACTULOSE 10 G/15 ML UDC (PYXIS) PO SCH ×4 (09:03→21:43)
[2019-11-01] MEDS: HEPARIN SODIUM, PORCINE 5000 UNITS/1 ML VIAL SQ SCH ×2 (09:04→21:00)
[2019-11-01 10:05] LABS: HEMOGLOBIN 6.8 g/dL (13.5-17.5)
[2019-11-01 10:10] LABS: BAND % (MANUAL) 17 % (0.0-5.0); LYMPHOCYTES % (MANUAL) 19 % (16-48); MONOCYTES % (MANUAL) 8 % (0-11.0); NEUTROPHILS % (MANUAL) 56 (42-76)
[2019-11-01 11:44] LABS: HEMOGLOBIN 7.4 g/dL (13.5-17.5)
[2019-11-01] MEDS ORDERED: Magnesium 1GM/D5W 100ML PREMIX 100 ML IV SCH (12:00)
[2019-11-01 16:00] VITALS: BP 108/68
[2019-11-01] MEDS ORDERED: RIFAXIMIN 550 MG TABLET ONE (18:21)
--- NOTE | 2019-11-01 19:33 | NUR ---
MS RN NOTES PATIENT IN BED RESTING NO SOB OR ACUTE DISTRESS NOTED. NO ACUTE CHANGES NOTED. ALL DUE MEDICATIONS ADMINISTERED. ALL NEEDS MET. ENDORSED CARE TO PM SHIFT.
--- NOTE | 2019-11-01 20:00 | NUR ---
MS RN OPENING NOTE: Received patient sleeping comfortably in bed. Patient shows no signs of pain or distress. Patient is on room air and breathing is unlabored and equal no SOB. Noted IV access on Right AC 20g and L forearm 20g. Both IV acces are patent and flushes well; no redness or erythema. Safety precautions are in place, bed is in lowest position, bed is locked, alarm is on, side rails x2 are up and call light is within reach. Will continue care of plan and monitor.
[2019-11-01 20:27] VITALS: BP 110/72
--- NOTE | 2019-11-01 21:46 | NUR ---
MS RN NOTE: Held heparin due to Hgb 7.4.
[2019-11-01 22:00] VITALS: BP 110/72
[2019-11-01] MEDS: *INSULIN REGULAR(HUMULIN R)HUM 100 UNIT/ML VIAL SQ PRN (22:12)
[2019-11-01] MEDS ORDERED: ALBUMIN 25% 100 ML IV ONE (22:26)
[2019-11-01] MEDS: ALBUMIN 25% 25 GM in PREMIX 1 EA IV SCH (22:43)
[2019-11-02] MEDS ORDERED: ALBUMIN 25% 100 ML IV ONE (05:49)
[2019-11-02] MEDS: ALBUMIN 25% 25 GM in PREMIX 1 EA IV SCH ×2 (05:55→12:10)
--- NOTE | 2019-11-02 06:50 | NUR ---
MS RN CLOSING NOTE: Patient in bed alert and awake. Patient denies pain. In no sign of distress. Patient is on room air and breathing is unlabored and equal no SOB. Safety precautions are in place, bed is in lowest position, bed is locked, alarm is on, side rails x2 are up and call light is within reach. Will endorse to oncoming shift.
[2019-11-02 07:03] LABS: CALCIUM, SERUM 7.7 mg/dL (8.5-10.1); CREATININE 4.5 mg/dL (0.6-1.3); MAGNESIUM 1.7 mg/dL (1.8-2.4); PHOSPHORUS 6.5 mg/dL (2.5-4.9); POTASSIUM 4.4 mmol/L (3.5-5.1)
[2019-11-02 07:07] LABS: BASOPHILS % (AUTO) 0.4 % (0.0-2.0); EOSINOPHILS % (AUTO) 1.6 % (0.0-6.0); HEMATOCRIT 23 % (39-51); HEMOGLOBIN 7.5 g/dL (13.5-17.5); LYMPHOCYTES # (AUTO) 1.3 /CMM (0.8-4.8); LYMPHOCYTES % (AUTO) 16.8 % (20.0-44.0); MEAN CORPUSCULAR HGB CONC 32 g/dl (31.0-36.0); MEAN CORPUSCULAR VOLUME 98 fL (80-96); MONOCYTES # (AUTO) 0.5 /CMM (0.1-1.30); MONOCYTES % (AUTO) 6.3 % (2.0-12.0); NEUTROPHILS # (AUTO) 5.8 /CMM (1.8-8.9); NEUTROPHILS % (AUTO) 74.9 % (43.0-81.0); PLATELET COUNT (AUTO) 126 /CMM (150-450); RED BLOOD CELL COUNT(AUTO) 2.36 MIL/uL (4.5-6.0); WHITE BLOOD COUNT (AUTO) 7.7 K/uL (4.3-11.0)
--- NOTE | 2019-11-02 07:13 | NUR ---
MS RN NOTES PATIENT IN BED RESTING. NOT IN ANY FORM OF DISTRESS. NO SOB. DENIED PAIN OR DISCOMFORT AT THIS TIME. PATIENT ALERT, ORIENTED X4. IV ACCESS INTACT AND PATENT. SAFETY MEASURES IN PLACE. BED IN LOW,LOCKED POSITION.SIDERAILS UPX2, CALL LIGHT IN REACH. WILL CONTINUE TO MONITOR ACCORDINGLY.
[2019-11-02] MEDS: INSULIN REGULAR, HUMAN 100 UNIT/ML 3 ML VIAL SQ PRN ×2 (07:40→11:54)
[2019-11-02] MEDS: BLOOD SUGAR DIAGNOSTIC 1 EACH STRIP IN SCH ×4 (07:46→22:04)
[2019-11-02 08:00] VITALS: BP 107/69
[2019-11-02] MEDS: HEPARIN SODIUM, PORCINE 5000 UNITS/1 ML VIAL SQ SCH ×2 (09:00→21:55)
[2019-11-02] MEDS: FOLIC ACID 1 MG TABLET PO SCH (09:05)
[2019-11-02] MEDS: CITRIC ACID/SODIUM CITRATE (BICITRA)15 ML UDC PO SCH ×4 (09:07→21:34)
[2019-11-02] MEDS: RIFAXIMIN 550 MG TABLET PO SCH ×2 (09:07→16:59)
[2019-11-02] MEDS: MULTIVIT W/MINERALS 1 TAB TABLET PO SCH (09:07)
[2019-11-02] MEDS: LACTULOSE 10 G/15 ML UDC (PYXIS) PO SCH ×5 (09:11→21:00)
[2019-11-02] MEDS: INSULIN GLARGINE, 100 UNIT/ML CARTRIDGE SQ SCH ×2 (09:35→21:56)
--- NOTE | 2019-11-02 09:46 | NUR ---
rn notes lovenox held. low hgb 7.5
--- NOTE | 2019-11-02 10:00 | NUR ---
IN STABLE CONDITION, TRANSFERRED PATIENT TO [facility] ROOM 206. BEDSIDE REPORT GIVEN TO HENRY SIMON FOR ANDREA
[2019-11-02 10:10] VITALS: BP 112/71
--- NOTE | 2019-11-02 10:15 | NUR ---
MS RN NOTES RECEIVED PT FROM [facility] VIA BED. PT AWAKE, A/OX 3, NEPALI SPEAKING BUT ABLE TO UNDERSTAND AND SPEAK SYRIAC. PT TOLERATING RA, WITH NO ACUTE RESPIRATORY DISTRESS NOTED. PT DENIES ANY PAIN OR DISCOMFORT AT THIS TIME. PIVS TO RAC G20 AND LFA G20, BOTH FLUSHED WITH NS, INTACT AND OPERATIONAL. A SIGNIFICANT LARGE ABDOMEN/ASCITES PRESENT. PER PATIENT ABLE TO WALK WITH ASSIST TO THE BEDSIDE COMMODE. PT KEPT COMFORTABLE IN BED. CALL LIGHT KEPT WITHIN REACH. PT'S BED IN LOWEST, LOCKED, POSITION WITH SRX3. WILL CONTINUE PLAN OF CARE.
[2019-11-02 16:00] VITALS: BP 127/70
[2019-11-02] MEDS ORDERED: LIDOCAINE 1% INJ 50 ML MDV IJ ONE (19:00)
--- NOTE | 2019-11-02 19:00 | NUR ---
RN MS OPENING NOTES RECEIVED PATIENT IN BED AWAKE ALERT AND ORIENTED X 3, AMERICAN SPEAKING ABLE TO MAKE NEEDS KNOWN, RESPIRATIONS EVEN AND UNLABORED WITH EQUAL RISE AND FALL OF CHEST, NOTED ABD DISTENDED, WITH ABD PAD TO LEFT SIDE S/P PARACENTHESIS SITE NOTED WITH LEAKING CLEAR. URINAL AT BEDSIDE, BSC OFFERED AND USED HAD X1 BM. IV SITE TO RIGHT AC REMOVED, NOTED SOILED, LEAKING, IV SITE TO LEFT FA #20G INTACT AND PATENT, NO REDNESS, NO INFILTRATION PRESENT, ORIENTED TO STAFF AND CALL LIGHT AND KEPT WITHIN REACH, SAFETY PRECAUTIONS IN PLACE, BED ALARM IN PLACE, ALL NEEDS ATTENDED WILL CONTINUE TO MONITOR AND ATTEND TO NEEDS.
--- NOTE | 2019-11-02 19:10 | NUR ---
MS RN NOTES RECEIVED CALL FROM DR. GUTIERREZ, STATED HELD THE BONE MARROW BIPSY TODAY. ORDERED REPEAT BLOOD CULTURES AND RECOMMENDING REPEAT COVID TEST. LIDOCAIN MEDICINE KEPT AT THE CASSETTE. NOTIFIED LW AND WILL ENDORSE TO INCOMING NIGHT NURSE FOR ANDREA.
--- NOTE | 2019-11-02 19:12 | NUR ---
MS RN NOTES PT IN BED, RESTING, A/OX 3, TURKISH SPEAKING BUT ABLE TO UNDERSTAND AND SPEAK MONGOLIAN. PT TOLERATING RA, WITH NO ACUTE RESPIRATORY DISTRESS NOTED. PT DENIES ANY PAIN OR DISCOMFORT AT THIS TIME. PIVS TO RAC G20 AND LFA G20, BOTH FLUSHED WITH NS, INTACT AND OPERATIONAL. ALL NEEDS AND CARE ATTENDED. PT KEPT COMFORTABLE IN BED. CALL LIGHT KEPT WITHIN REACH. PT'S BED IN LOWEST, LOCKED, POSITION WITH SRX3. WILL ENDORSE TO INCOMING NIGHT NURSE FOR ANDREA.
[2019-11-02 20:00] VITALS: BP 124/82
--- NOTE | 2019-11-02 20:11 | NUR ---
rn ms notes received call from leonides estrada critical result procalcitonin 2.04
--- NOTE | 2019-11-02 20:13 | NUR ---
rn ms notes made elocution teacher md balderas aware of critical result procalcitonin of 2.04
[2019-11-02 20:22] VITALS: BP 124/82
--- NOTE | 2019-11-02 21:00 | NUR ---
rn ms notes patient refused, covid testing , made aware of benefit for covid testing for possible procedure, still refused x3
--- NOTE | 2019-11-02 21:00 | NUR ---
rn ms notes patient refused lactulose x3 despite education risk and benefits provided.
[2019-11-02] MEDS: *INSULIN REGULAR(HUMULIN R)HUM 100 UNIT/ML VIAL SQ PRN (22:08)
[2019-11-03] VITALS (10 sets, daily range): BP systolic 103–120; BP diastolic 69–79
[2019-11-03] MEDS: BLOOD SUGAR DIAGNOSTIC 1 EACH STRIP IN SCH ×4 (06:07→21:19)
[2019-11-03] MEDS: INSULIN REGULAR, HUMAN 100 UNIT/ML 3 ML VIAL SQ PRN ×2 (06:07→17:28)
--- NOTE | 2019-11-03 06:32 | NUR ---
RN MS CLOSING NOTES PATIENT IN BED AWAKE ALERT AND ORIENTED X 3, BARBADIAN SPEAKING ABLE TO MAKE NEEDS KNOWN, RESPIRATIONS EVEN AND UNLABORED WITH EQUAL RISE AND FALL OF CHEST, NOTED ABD DISTENDED, WITH ABD PAD TO LEFT SIDE S/P PARACENTHESIS SITE NOTED WITH LEAKING CLEAR. CHANGED X 2, URINAL AT BEDSIDE, BSC OFFERED AND USED HAD X2 BM. IV SITE TO LEFT FA #20G INTACT AND PATENT, NO REDNESS, NO INFILTRATION PRESENT, CALL LIGHT KEPT WITHIN REACH, SAFETY PRECAUTIONS IN PLACE, BED ALARM IN PLACE, ALL NEEDS ATTENDED WILL CONTINUE TO MONITOR AND ATTEND TO NEEDS AND ENDORSE TO NEXT SHIFT. PATIENT REFUSED COVID TESTING, STATES " THEY KEEP TESTING ME, I ALREADY DID IT , DOING TOO MUCH.", REFUSED LACTULOSE STATES " I POOP TOO MUCH." DESPITE EDUCATION PROVIDED. AT THIS TIME REMAINS COMFORTABLE.
[2019-11-03 07:00] LABS: BASOPHILS % (AUTO) 0.4 % (0.0-2.0); EOSINOPHILS % (AUTO) 1.7 % (0.0-6.0); HEMATOCRIT 21 % (39-51); LYMPHOCYTES # (AUTO) 1.5 /CMM (0.8-4.8); LYMPHOCYTES % (AUTO) 22.6 % (20.0-44.0); MEAN CORPUSCULAR HGB CONC 32 g/dl (31.0-36.0); MEAN CORPUSCULAR VOLUME 98 fL (80-96); MONOCYTES # (AUTO) 0.5 /CMM (0.1-1.30); MONOCYTES % (AUTO) 7.8 % (2.0-12.0); NEUTROPHILS # (AUTO) 4.4 /CMM (1.8-8.9); NEUTROPHILS % (AUTO) 67.5 % (43.0-81.0); PLATELET COUNT (AUTO) 109 /CMM (150-450); RED BLOOD CELL COUNT(AUTO) 2.13 MIL/uL (4.5-6.0); WHITE BLOOD COUNT (AUTO) 6.5 K/uL (4.3-11.0)
[2019-11-03 07:02] LABS: APPEARANCE,URINE SL CLOUDY (CLEAR); BILIRUBIN,URINE NEGATIVE (NEGATIVE); BLOOD, URINE LARGE Ery/uL (NEGATIVE); COLOR,URINE DARK YELLO (YELLOW); KETONES,URINE NEGATIVE (NEGATIVE); LEUKOCYTE ESTERASE ,URINE NEGATIVE (NEGATIVE); NITRITE, URINE NEGATIVE (NEGATIVE); PROTEIN,URINE >=300 mg/dl (NEGATIVE); UGLUCOSE 250 MG/DL mg/dL (NEGATIVE); UROBILINOGEN,URINE 0.2 EU/dL (0.2)
[2019-11-03 07:12] LABS: CALCIUM, SERUM 7.5 mg/dL (8.5-10.1); CREATININE 5.2 mg/dL (0.6-1.3); MAGNESIUM 1.9 mg/dL (1.8-2.4); PHOSPHORUS 6.2 mg/dL (2.5-4.9); POTASSIUM 3.8 mmol/L (3.5-5.1)
[2019-11-03 07:27] LABS: HEMOGLOBIN 6.6 g/dL (13.5-17.5)
--- NOTE | 2019-11-03 07:35 | NUR ---
MS RN NOTES RECEIVED PT IN BED, AWAKE, A/OX 3, PASHTO SPEAKING BUT ABLE TO UNDERSTAND AND SPEAK PORTUGUESE. PT TOLERATING RA, WITH NO ACUTE RESPIRATORY DISTRESS NOTED. PT DENIES ANY PAIN OR DISCOMFORT AT THIS TIME. PT DENIES ANY QUESTIONS OR CONCERN. PIV TO LFA G20, FLUSHED WITH NS, INTACT AND OPERATIONAL. PT KEPT COMFORTABLE IN BED. CALL LIGHT KEPT WITHIN REACH. PT'S BED IN LOWEST, LOCKED, POSITION WITH SRX3. WILL CONTINUE PLAN OF CARE.
--- NOTE | 2019-11-03 08:18 | NUR ---
MS RN NOTES RECEIVED CALL FROM LAB REGARDING HGB RESULT OF 6.6. HOSPITALIST/TS MADE AWARE AWAITING FOR ORDERS.
--- NOTE | 2019-11-03 08:30 | NUR ---
MS RN NOTES PT STILL REFUSED TO HAVE 2ND TEST DONE FOR COVID. RISKS AND BENEFITS MADE AWARE. EDUCATED WHAT THE TEST IS FOR WELL. PT STILL INSIT TO REFUSE. WILL NOTIFY DR. GUTIERREZ. WILL CONTINUE TO MONITOR.
[2019-11-03] MEDS: HEPARIN SODIUM, PORCINE 5000 UNITS/1 ML VIAL SQ SCH ×2 (09:00→21:48)
[2019-11-03] MEDS: LACTULOSE 10 G/15 ML UDC (PYXIS) PO SCH ×5 (09:00→21:02)
[2019-11-03] MEDS: CITRIC ACID/SODIUM CITRATE (BICITRA)15 ML UDC PO SCH ×5 (09:00→21:04)
[2019-11-03] MEDS: RIFAXIMIN 550 MG TABLET PO SCH ×2 (09:03→17:27)
[2019-11-03] MEDS: FOLIC ACID 1 MG TABLET PO SCH (09:03)
[2019-11-03] MEDS: MULTIVIT W/MINERALS 1 TAB TABLET PO SCH (09:03)
[2019-11-03] MEDS: INSULIN GLARGINE, 100 UNIT/ML CARTRIDGE SQ SCH ×2 (09:08→21:48)
[2019-11-03 09:12] LABS: RBC,URINE 21-50 /HPF (0-2)
[2019-11-03 09:14] LABS: BACTERIA,URINE Moderate /HPF (None Seen); COARSE GRANULAR CASTS,URINE Few /LPF (None Seen); SQUAMOUS EPITHELIAL CELL,UR Few /HPF (None Seen)
--- NOTE | 2019-11-03 09:30 | NUR ---
MS RN NOTES PT REFUSED LACTULOSE AND SODIUM CITRATE. RISKS AND BENEFITS MADE AWARE AND STILL INSIST TO REFUSE. WILL NOTIFY HOSPITALIST/TS AWILL CONTINUE TO MONITOR.
--- NOTE | 2019-11-03 09:35 | NUR ---
MS RN NOTES RECEIVED ORDER OF 1PRBC TO TRANSFUSE TO PT. PT MADE AWARE, CONSENT OBTAINED FROM THE PATIENT. WILL CONTINUE TO MONITOR.
[2019-11-03 10:14] LABS: LYMPHOCYTES % (MANUAL) 26 % (16-48); MONOCYTES % (MANUAL) 6 % (0-11.0); NEUTROPHILS % (MANUAL) 68 (42-76)
--- NOTE | 2019-11-03 10:39 | NUR ---
MS RN NOTES CALLED LAB AND BLOOD IS NOT READY YET. AWAITING FOR BLOOD TO BE AVAILABLE BEFORE TRANSFUSING. NO ACTIVE BLEEDING PRESENT. WILL CONTINUE TO MONITOR.
--- NOTE | 2019-11-03 11:12 | NUR ---
MS RN NOTES CALLED PHARMACY AND SPOKE TO NESTOR REGARDING ALBUMIN OF PT. MEDICINE STILL NOT AVAILABLE IN THE UNIT. WILL ADMINISTER WHEN MEDICINE COMES AVAILABLE.
[2019-11-03] MEDS: ALBUMIN 25% 25 GM in PREMIX 1 EA IV SCH ×3 (11:42→21:09)
[2019-11-03] MEDS: *INSULIN REGULAR(HUMULIN R)HUM 100 UNIT/ML VIAL SQ PRN ×2 (12:27→21:47)
[2019-11-03] MEDS ORDERED: OCTREOTIDE 50 MCG/ML AMPUL SQ SCH (13:00)
[2019-11-03] MEDS: MIDODRINE HCL (5MG) 5 MG TABLET PO SCH ×2 (13:06→17:26)
[2019-11-03] MEDS: OCTREOTIDE 100 MCG/ML VIAL SQ SCH ×2 (13:09→20:58)
--- NOTE | 2019-11-03 15:00 | NUR ---
MS RN NOTES BLOOD TRANSFUSION STARTED, VITALS STABLE AT THIS TIME. WILL CONTINUE TO MONITOR.
--- NOTE | 2019-11-03 16:40 | NUR ---
MS RN NOTES RECEIVED CALL FROM LAB REGARDING BLOOD CULTURE RESULT OF GRAM POSITIVE COCCI. ID/LAKISHA VARNER AT THE UNIT MADE AWARE. ORDERS PLACED. WILL CONTINUE TO MONITOR.
[2019-11-03] MEDS ORDERED: FEE PK DOSING 1 MIN EA MC ONE (17:00)
[2019-11-03] MEDS ORDERED: VANCOMYCIN 1 GM in IV NS 0.9% 250 ML IV ONE (18:30)
--- NOTE | 2019-11-03 18:52 | NUR ---
MS RN NOTES PT REMAINS IN BED, AWAKE, A/OX 3, DIVEHI SPEAKING BUT ABLE TO UNDERSTAND AND SPEAK MOSOTHO. PT TOLERATING RA, WITH NO ACUTE RESPIRATORY DISTRESS NOTED. PT DENIES ANY PAIN OR DISCOMFORT AT THIS TIME. PIV TO LFA G20, FLUSHED WITH NS, INTACT AND OPERATIONAL. PT KEPT COMFORTABLE IN BED. ALL NEEDS AND CARE ATTENDED. CALL LIGHT KEPT WITHIN REACH. PT'S BED IN LOWEST, LOCKED, POSITION WITH SRX3. WILL ENDORSE TO INCOMING NIGHT NURSE FOR ANDREA.
--- NOTE | 2019-11-03 19:10 | NUR ---
RN medsurruma opening notes Received Pt from morning nurse. Pt is laying in bed comfortably watching TV. Pt is alert and orientedX3. Pt speaks American and able to make needs known. Respiration is normal. No SOB. No S/S of distress noted. IV sites at LFA# 20 is clean, intact, and SL. Noted Pt's abdomen is distended with left side abdomen abd pad dressing is leaking with clear fluid S/P paracentesis. Safety precautions is maintained. Bed at low positon, brakes locked, side railsupX2, bedside commode at the bedside, urinal at the bedside and call light is within reach. Will continue to monitor.
[2019-11-03] MEDS ORDERED: VANCOMYCIN 0.75 GM in IV D5W 250 ML IV SCH (20:00)
[2019-11-04] MEDS: ALBUMIN 25% 25 GM in PREMIX 1 EA IV SCH (03:05)
[2019-11-04] MEDS: OCTREOTIDE 100 MCG/ML VIAL SQ SCH ×3 (04:07→22:20)
[2019-11-04] MEDS: BLOOD SUGAR DIAGNOSTIC 1 EACH STRIP IN SCH ×4 (06:48→21:56)
--- NOTE | 2019-11-04 06:50 | NUR ---
RN medsurg closing notes Pt is resting in bed comfortably. Pt is alert and orientedX3. Pt speaks Cymro and able to make needs known. Respiration is normal. No SOB. No S/S of distress noted. VS is stable. Afebrile. Routine meds were given as ordered. IV sites at LFA# 20 is clean, intact, and SL. Kept Pt clean, dry and comfortable. All needs met and attended. Safety precautions is maintained. Bed at low positon, brakes locked, side railsupX2, bedside commode at the bedside, urinal at the bedside and call light is within reach. Will endorse to morning nurse for ANDREA.
[2019-11-04 07:04] LABS: BASOPHILS % (AUTO) 0.5 % (0.0-2.0); HEMATOCRIT 25 % (39-51); LYMPHOCYTES # (AUTO) 1.6 /CMM (0.8-4.8); LYMPHOCYTES % (AUTO) 26.1 % (20.0-44.0); MEAN CORPUSCULAR HGB CONC 33 g/dl (31.0-36.0); MEAN CORPUSCULAR VOLUME 95 fL (80-96); MONOCYTES # (AUTO) 0.6 /CMM (0.1-1.30); MONOCYTES % (AUTO) 9.2 % (2.0-12.0); NEUTROPHILS # (AUTO) 3.7 /CMM (1.8-8.9); NEUTROPHILS % (AUTO) 61.2 % (43.0-81.0); PLATELET COUNT (AUTO) 126 /CMM (150-450); RED BLOOD CELL COUNT(AUTO) 2.58 MIL/uL (4.5-6.0)
--- NOTE | 2019-11-04 07:18 | NUR ---
MS RN NOTES PATIENT IN BED ALERT ORIENTED X 3. NO ACUTE DISTRESS NOTED. BREATHING UNLABORED. IV ACCESS PATENT AND INTACT, NO REDNESS, NO SWELLING NOTED. SAFETY MEASURES IN PLACE. CALL LIGHT WITHIN REACH. WILL CONTINUE TO MONITOR ACCORDINGLY.
[2019-11-04 07:28] LABS: ALBUMIN 2.4 g/dL (3.4-5.0); BILIRUBIN,TOTAL 0.6 mg/dL (0.2-1.0); CALCIUM, SERUM 7.9 mg/dL (8.5-10.1); CREATININE 5.3 mg/dL (0.6-1.3); MAGNESIUM 2.1 mg/dL (1.8-2.4); PHOSPHORUS 7.1 mg/dL (2.5-4.9); POTASSIUM 3.8 mmol/L (3.5-5.1); TOTAL PROTEIN, SERUM 5.1 g/dL (6.4-8.2)
[2019-11-04] MEDS: MULTIVIT W/MINERALS 1 TAB TABLET PO SCH (09:44)
[2019-11-04] MEDS: FOLIC ACID 1 MG TABLET PO SCH (09:44)
[2019-11-04] MEDS: LACTULOSE 10 G/15 ML UDC (PYXIS) PO SCH ×4 (09:44→21:28)
[2019-11-04] MEDS: CITRIC ACID/SODIUM CITRATE (BICITRA)15 ML UDC PO SCH ×4 (09:44→21:28)
[2019-11-04] MEDS: RIFAXIMIN 550 MG TABLET PO SCH ×2 (09:44→17:50)
[2019-11-04] MEDS: MIDODRINE HCL (5MG) 5 MG TABLET PO SCH ×3 (09:45→17:50)
[2019-11-04] MEDS: HEPARIN SODIUM, PORCINE 5000 UNITS/1 ML VIAL SQ SCH ×2 (09:54→21:27)
[2019-11-04] MEDS: INSULIN GLARGINE, 100 UNIT/ML CARTRIDGE SQ SCH ×2 (09:55→21:56)
--- NOTE | 2019-11-04 11:56 | NUR ---
MS RN NOTES PATIENT REFUSED ACCU CHECK DESPITE OF EXPLANATION OF RISKS AND BENEFITS
[2019-11-04] MEDS: INSULIN REGULAR, HUMAN 100 UNIT/ML 3 ML VIAL SQ PRN ×2 (17:45→22:14)
[2019-11-04 18:42] VITALS: BP 125/72
--- NOTE | 2019-11-04 18:50 | NUR ---
MS RN NOTES URINE SPECIMEN COLLECTED, CALLED LABORATORY SPOKE WITH AMNA FOR CLINICAL DIRECTOR.
--- NOTE | 2019-11-04 19:00 | NUR ---
MS RN NOTES PATIENT IN BED ALERT ORIENTED X 3. NO ACUTE DISTRESS NOTED. BREATHING UNLABORED. IV ACCESS PATENT AND INTACT, NO REDNESS, NO SWELLING NOTED. NEEDS ATTENDED AND ANTICIPATED. KEPT COMFORTABLE. HEAD OF BED ELEVATED. SAFETY MEASURES IN PLACE. CALL LIGHT WITHIN REACH. WILL ENDORSE TO NIGHT FOR CONTINUITY OF CARE
[2019-11-04 20:00] VITALS: BP 127/78
[2019-11-04] MEDS ORDERED: OCTREOTIDE 100 MCG/ML VIAL ONE (22:17)
[2019-11-05] MEDS ORDERED: OCTREOTIDE 100 MCG/ML VIAL ONE (03:24)
[2019-11-05] MEDS: OCTREOTIDE 100 MCG/ML VIAL SQ SCH ×3 (05:07→20:28)
[2019-11-05] MEDS ORDERED: VANCOMYCIN 1 GM in IV D5W 250 ML IV SCH (06:00)
--- NOTE | 2019-11-05 06:00 | NUR ---
MS RN NOTES BS CHECKED 47. RECHECKED BS PER PROTOCOL. BS 66. APPLE JUICE GIVEN. PT TOLERATED WELL. WILL CONTINUE TO MONITOR.
[2019-11-05] MEDS: BLOOD SUGAR DIAGNOSTIC 1 EACH STRIP IN SCH ×4 (06:16→21:12)
--- NOTE | 2019-11-05 06:45 | NUR ---
MS RN NOTES AWAKE & RESPONSIVE. NOT IN ANY DISTRESS. NO SOB NOTED. DENIES ANY PAIN OR DISCOMFORT AT THIS TIME. WITH IVF INFUSING WELL. MONITORED ACCORDINGLY. CALL LIGHT WITHIN REACH. BED IN LOWEST POSITION. SR UP X 2 FOR SAFETY. WILL ENDORSE TO NEXT SHIFT.
[2019-11-05 07:06] LABS: BASOPHILS # (AUTO) 0.1 /CMM (0.0-0.2); BASOPHILS % (AUTO) 0.7 % (0.0-2.0); EOSINOPHILS % (AUTO) 2.2 % (0.0-6.0); HEMATOCRIT 26 % (39-51); HEMOGLOBIN 8.5 g/dL (13.5-17.5); LYMPHOCYTES # (AUTO) 1.5 /CMM (0.8-4.8); LYMPHOCYTES % (AUTO) 16.7 % (20.0-44.0); MEAN CORPUSCULAR HGB CONC 33 g/dl (31.0-36.0); MEAN CORPUSCULAR VOLUME 94 fL (80-96); MONOCYTES # (AUTO) 0.8 /CMM (0.1-1.30); MONOCYTES % (AUTO) 8.7 % (2.0-12.0); NEUTROPHILS # (AUTO) 6.5 /CMM (1.8-8.9); NEUTROPHILS % (AUTO) 71.7 % (43.0-81.0); PLATELET COUNT (AUTO) 192 /CMM (150-450); RED BLOOD CELL COUNT(AUTO) 2.79 MIL/uL (4.5-6.0)
[2019-11-05 07:19] LABS: CALCIUM, SERUM 8.1 mg/dL (8.5-10.1); CREATININE 5.7 mg/dL (0.6-1.3); PHOSPHORUS 7.1 mg/dL (2.5-4.9); POTASSIUM 3.7 mmol/L (3.5-5.1)
[2019-11-05 08:00] VITALS: BP 115/72
[2019-11-05] MEDS: CITRIC ACID/SODIUM CITRATE (BICITRA)15 ML UDC PO SCH ×4 (08:59→20:29)
[2019-11-05] MEDS: MIDODRINE HCL (5MG) 5 MG TABLET PO SCH ×3 (08:59→17:24)
[2019-11-05] MEDS: RIFAXIMIN 550 MG TABLET PO SCH ×2 (08:59→17:23)
[2019-11-05] MEDS: LACTULOSE 10 G/15 ML UDC (PYXIS) PO SCH ×4 (08:59→20:29)
[2019-11-05] MEDS: MULTIVIT W/MINERALS 1 TAB TABLET PO SCH (08:59)
[2019-11-05] MEDS: FOLIC ACID 1 MG TABLET PO SCH (08:59)
[2019-11-05] MEDS: INSULIN GLARGINE, 100 UNIT/ML CARTRIDGE SQ SCH ×2 (09:04→21:14)
[2019-11-05] MEDS: HEPARIN SODIUM, PORCINE 5000 UNITS/1 ML VIAL SQ SCH ×2 (09:05→20:29)
--- NOTE | 2019-11-05 13:00 | NUR ---
MS RN NOTES LEFT FOREARM IV ACCESS REMOVED DUE TO LEAKING, STARTED NEW IV ACCESS ON LEFT ANTECUBITAL GAUGE 20 WITH GOOD BLOOD RETURN, PATIENT TOLERATED WELL. SECURED WITH TRANSPARENT DRESSING SIGNED AND DATED.
--- NOTE | 2019-11-05 17:12 | NUR ---
MS RN NOTES PATIENT NOTED WITH BLOOD SUGAR 67, SNACK PROVIDED TO THE PATIENT. PATIENT ALERT ORIENTED X 3.
--- NOTE | 2019-11-05 18:00 | NUR ---
MS RN NOTED SPOKE WITH DR GUTIERREZ SAID SHE WILL COME TO DO BONE MARROW BIOPSY TOMORROW.
[2019-11-05 18:35] VITALS: BP 109/65
--- NOTE | 2019-11-05 18:57 | NUR ---
MS RN NOTES PATIENT IN BED ALERT ORIENTED X 3. NO ACUTE DISTRESS NOTED. BREATHING UNLABORED. IV ACCESS PATENT AND INTACT, NO REDNESS, NO SWELLING NOTED. PATIENT ATE DINNER 100%. NEEDS ATTENDED AND ANTICIPATED. KEPT COMFORTABLE. HEAD OF BED ELEVATED. SAFETY MEASURES IN PLACE. CALL LIGHT WITHIN REACH. WILL ENDORSE TO NIGHT FOR CONTINUITY OF CARE
[2019-11-05 20:00] VITALS: BP 114/76
[2019-11-06] MEDS: OCTREOTIDE 100 MCG/ML VIAL SQ SCH ×3 (04:55→21:29)
--- NOTE | 2019-11-06 06:23 | NUR ---
MS RN NOTES AWAKE & RESPONSIVE. NOT IN ANY DISTRESS. NO SOB NOTED. DENIES ANY PAIN OR DISCOMFORT AT THIS TIME. WITH IV-HL PATENT & INTACT. MONITORED ACCORDINGLY. CALL LIGHT WITHIN REACH. BED IN LOWEST POSITION. SR UP X 2 FOR SAFETY. WILL ENDORSE TO NEXT SHIFT.
[2019-11-06] MEDS: BLOOD SUGAR DIAGNOSTIC 1 EACH STRIP IN SCH ×4 (06:47→21:40)
--- NOTE | 2019-11-06 07:10 | NUR ---
MS RN NOTES PATIENT IN BED ALERT ORIENTED X3. NO ACUTE DISTRESS NOTED. BREATHING UNLABORED. IV ACCESS PATENT AND INTACT, NO REDNESS, NO SWELLING NOTED. SAFETY MEASURES IN PLACE. CALL LIGHT WITHIN REACH. WILL CONTINUE TO MONITOR ACCORDINGLY.
[2019-11-06 07:20] LABS: CALCIUM, SERUM 8.2 mg/dL (8.5-10.1); CREATININE 6.1 mg/dL (0.6-1.3); MAGNESIUM 2.1 mg/dL (1.8-2.4); PHOSPHORUS 5.9 mg/dL (2.5-4.9); POTASSIUM 4.3 mmol/L (3.5-5.1)
[2019-11-06 08:00] VITALS: BP 119/81
[2019-11-06 08:01] LABS: BASOPHILS % (AUTO) 0.7 % (0.0-2.0); EOSINOPHILS % (AUTO) 3.4 % (0.0-6.0); HEMATOCRIT 25 % (39-51); HEMOGLOBIN 8.2 g/dL (13.5-17.5); LYMPHOCYTES % (AUTO) 15.8 % (20.0-44.0); MEAN CORPUSCULAR HGB CONC 32 g/dl (31.0-36.0); MEAN CORPUSCULAR VOLUME 95 fL (80-96); MONOCYTES # (AUTO) 0.4 /CMM (0.1-1.30); MONOCYTES % (AUTO) 6.9 % (2.0-12.0); NEUTROPHILS # (AUTO) 4.7 /CMM (1.8-8.9); NEUTROPHILS % (AUTO) 73.2 % (43.0-81.0); PLATELET COUNT (AUTO) 153 /CMM (150-450); RED BLOOD CELL COUNT(AUTO) 2.67 MIL/uL (4.5-6.0); WHITE BLOOD COUNT (AUTO) 6.5 K/uL (4.3-11.0)
[2019-11-06] MEDS: FOLIC ACID 1 MG TABLET PO SCH (09:00)
[2019-11-06] MEDS: CITRIC ACID/SODIUM CITRATE (BICITRA)15 ML UDC PO SCH ×4 (09:00→21:28)
[2019-11-06] MEDS: LACTULOSE 10 G/15 ML UDC (PYXIS) PO SCH ×4 (09:00→21:28)
[2019-11-06] MEDS: RIFAXIMIN 550 MG TABLET PO SCH ×2 (09:00→17:43)
[2019-11-06] MEDS: MULTIVIT W/MINERALS 1 TAB TABLET PO SCH (09:00)
[2019-11-06] MEDS: INSULIN GLARGINE, 100 UNIT/ML CARTRIDGE SQ SCH (09:03)
[2019-11-06] MEDS: MIDODRINE HCL (5MG) 5 MG TABLET PO SCH ×3 (09:06→17:00)
--- NOTE | 2019-11-06 12:00 | NUR ---
MS RN NOTES PATIENT REFUSED ACCU CHECK DESPITE OF EXPLANATION OF RISKS AND BENEFITS
[2019-11-06] MEDS: CEFAZOLIN 1 GM in IV D5W 50 ML IV SCH (16:52)
--- NOTE | 2019-11-06 17:00 | NUR ---
MS RN NOTES HELD MIDODRINE BLOOD PRESSURE NOTED 131/74
--- NOTE | 2019-11-06 17:25 | NUR ---
MS RN NOTES BLOOD SUGAR NOTED 48, RECHECKED BLOOD SUGAR 55, PATIENT ASYMPTOMATIC, ALERT ORIENTED X 3. SNACKS PROVIDED WITH PATIENT. NOTIFIED DR RIMMA SHAH WITH ORDER TO ADMINISTER D50 ORDERED PRN. WILL CONTINUE TO MONITOR PATIENT
[2019-11-06] MEDS: DEXTROSE 50%-WATER 50 ML DISP.SYRIN IV PRN ×2 (17:33→21:41)
[2019-11-06 17:38] VITALS: BP 131/74
--- NOTE | 2019-11-06 18:04 | NUR ---
MS RN NOTES BLOOD SUGAR RECHECKED BLOOD SUGAR NOTED 155 , PATIENT ASYMPTOMATIC, ALERT ORIENTED X 3. PATIENT STARTED TO EAT DINNER. WILL CONTINUE TO MONITOR PATIENT.
--- NOTE | 2019-11-06 19:00 | NUR ---
MS RN NOTES PATIENT IN BED ALERT ORIENTED X 3. NO ACUTE DISTRESS NOTED. BREATHING UNLABORED. IV ACCESS PATENT AND INTACT, NO REDNESS, NO SWELLING NOTED. PATIENT REFUSED SOME AM MEDICATIONS DESPITE OF EXPLANATION OF RISKS AND BENEFITS. NO SIGNS AND SYMPTOMS OF HYPOGLYCEMIA OR HYPERGLYCEMIA NOTED. NEEDS ATTENDED AND ANTICIPATED. KEPT COMFORTABLE. HEAD OF BED ELEVATED. SAFETY MEASURES IN PLACE. CALL LIGHT WITHIN REACH. WILL ENDORSE TO NIGHT FOR CONTINUITY OF CARE
--- NOTE | 2019-11-06 19:05 | NUR ---
MS RN NOTES MD GUTIERREZ AT BEDSIDE TO START BONE MARROW BIOPSY.
--- NOTE | 2019-11-06 19:25 | NUR ---
MS RN NOTES 1MG IV MORPHINE ONCE ORDERED BY MD GUTIERREZ, GIVEN TO PATIENT AT BEDSIDE FOR BONE MARROW BIOPSY. WASTED AND WITNESSED WITH HENRY WALLS.
[2019-11-06] MEDS ORDERED: MORPHINE SULFATE INJ 2 MG/ML DISP.SYRIN IV ONE (19:30)
--- NOTE | 2019-11-06 19:49 | NUR ---
MS RN NOTES 250 MG LIDOCAINE USED THROUGHOUT PROCEDURE. PATIENT STABLE, SLIGHT COMPLAINTS OF PAIN AND DISCOMFORT.
--- NOTE | 2019-11-06 19:50 | NUR ---
MS RN NOTES WASTED REMAINING OF LIDOCAINE, WITNESSED BY HENRY WALLS.
[2019-11-06 20:00] VITALS: BP 118/83
[2019-11-06 20:09] LABS: BASOPHILS # (AUTO) 0.1 /CMM (0.0-0.2); BASOPHILS % (AUTO) 0.9 % (0.0-2.0); EOSINOPHILS % (AUTO) 3.9 % (0.0-6.0); HEMATOCRIT 25 % (39-51); HEMOGLOBIN 8.1 g/dL (13.5-17.5); LYMPHOCYTES # (AUTO) 1.5 /CMM (0.8-4.8); LYMPHOCYTES % (AUTO) 20.1 % (20.0-44.0); MEAN CORPUSCULAR HGB CONC 33 g/dl (31.0-36.0); MEAN CORPUSCULAR VOLUME 94 fL (80-96); MONOCYTES # (AUTO) 0.5 /CMM (0.1-1.30); NEUTROPHILS % (AUTO) 68.1 % (43.0-81.0); PLATELET COUNT (AUTO) 144 /CMM (150-450); RED BLOOD CELL COUNT(AUTO) 2.64 MIL/uL (4.5-6.0); WHITE BLOOD COUNT (AUTO) 7.4 K/uL (4.3-11.0)
--- NOTE | 2019-11-06 20:10 | NUR ---
MS RN NOTES SPECIMEN DELIVERED TO LAB FOR PATHO
--- NOTE | 2019-11-06 20:15 | NUR ---
MS RN OPENING NOTES PATIENT RECEIVED RESTING IN BED A/O X 3 ROMANIAN SPEAKING. STABLE ON RA WITH BREATHING EVEN AND UNLABORED, NO SOB NOTED. NO SIGNS OF ACUTE DISTRESS. SLIGHT COMPLAINTS OF PAIN AND DISCOMFORT S/P BONE MARROW BIOPSY. IV LOCATED ON AC #20 HL. SAFETY PRECAUTIONS IN PLACE, BED IN LOWEST POSITION, CALL LIGHT WITHIN REACH, BREAKS ON, SIDE RAILS UP. WILL CONTINUE TO MONITOR THROUGHOUT THE NIGHT.
[2019-11-06 20:18] VITALS: BP 118/83
[2019-11-06 20:29] LABS: EOSINOPHILS % (MANUAL) 2 % (0-4); LYMPHOCYTES % (MANUAL) 21 % (16-48); MONOCYTES % (MANUAL) 7 % (0-11.0); NEUTROPHILS % (MANUAL) 70 (42-76)
--- NOTE | 2019-11-06 21:54 | NUR ---
MS RN NOTES FSBS 55 PATIENT INTAKES 2 APPLE JUICE, ADMINISTERED DEXTROSE. DID NOT ADMINISTER SCHEDULED INSULIN GLARGINE. WILL CONTINUE TO MONITOR AND RECHECK. PATIENT ALERT AND STABLE.
[2019-11-06] MEDS ORDERED: INSULIN GLARGINE, 100 UNIT/ML CARTRIDGE SQ SCH (22:00)
--- NOTE | 2019-11-06 22:30 | NUR ---
MS RN NOTES FSBS INCREASED TO 146. PATIENT AWAKE AND STABLE. WILL CONTINUE TO MONITOR THROUGHOUT THE NIGHT.
[2019-11-07] MEDS: CEFAZOLIN 1 GM in IV D5W 50 ML IV SCH ×2 (04:09→15:48)
[2019-11-07] MEDS: OCTREOTIDE 100 MCG/ML VIAL SQ SCH ×3 (04:10→22:30)
[2019-11-07] MEDS: BLOOD SUGAR DIAGNOSTIC 1 EACH STRIP IN SCH ×4 (06:50→21:13)
[2019-11-07] MEDS: DEXTROSE 50%-WATER 50 ML DISP.SYRIN IV PRN (06:51)
--- NOTE | 2019-11-07 06:56 | NUR ---
MS RN NOTES FSBS 49. DEXTROSE 50 ML GIVEN. COMMUNICATION SPECIALIST FELIPA HOYT AWARE. PATIENT AWAKE AND ALERT. WILL CONTINUE TO MONITOR AND RECHECK BS.
--- NOTE | 2019-11-07 07:03 | NUR ---
MS RN CLOSING NOTES PATIENT RESTING IN BED A/O X 3, EAST TIMOR[place] SPEAKING. STABLE ON RA WITH BREATHING EVEN AND UNLABORED, NO SOB NOTED. NO SIGNS OF ACUTE DISTRESS. NO COMPLAINTS OF PAIN OR DISCOMFORT. IV LOCATED ON L AC #20. PATIENT AWAKE AND ALERT. MONITORING LOW BS. SAFETY PRECAUTIONS IN PLACE WITH BED IN LOWEST POSITION, CALL LIGHT WITHIN REACH, BREAKS ON, SIDE RAILS UP. ALL NEEDS ATTENDED TO. WILL ENDORSE TO ONCOMING SHIFT ABOUT ANDREA.
[2019-11-07 07:26] LABS: BASOPHILS # (AUTO) 0.1 /CMM (0.0-0.2); EOSINOPHILS % (AUTO) 5.8 % (0.0-6.0); HEMATOCRIT 27 % (39-51); HEMOGLOBIN 8.6 g/dL (13.5-17.5); LYMPHOCYTES # (AUTO) 1.7 /CMM (0.8-4.8); LYMPHOCYTES % (AUTO) 19.2 % (20.0-44.0); MEAN CORPUSCULAR HGB CONC 32 g/dl (31.0-36.0); MEAN CORPUSCULAR VOLUME 94 fL (80-96); MONOCYTES # (AUTO) 0.6 /CMM (0.1-1.30); MONOCYTES % (AUTO) 7.2 % (2.0-12.0); NEUTROPHILS # (AUTO) 5.9 /CMM (1.8-8.9); NEUTROPHILS % (AUTO) 66.8 % (43.0-81.0); PLATELET COUNT (AUTO) 203 /CMM (150-450); RED BLOOD CELL COUNT(AUTO) 2.85 MIL/uL (4.5-6.0); WHITE BLOOD COUNT (AUTO) 8.9 K/uL (4.3-11.0)
--- NOTE | 2019-11-07 07:30 | NUR ---
MS FIGUEROA NOTES RECEIVED PT IN BED, AWAKE, A/OX 3, QATARI SPEAKING BUT ABLE TO UNDERSTAND AND SPEAK NORTHERN IRISH. PT TOLERATING RA, WITH NO ACUTE RESPIRATORY DISTRESS NOTED. PT DENIES ANY PAIN OR DISCOMFORT AT THIS TIME. PT DENIES ANY QUESTIONS OR CONCERN. PIV TO LAC G20, FLUSHED WITH NS, INTACT AND OPERATIONAL. PT KEPT COMFORTABLE IN BED. CALL LIGHT KEPT WITHIN REACH. PT'S BED IN LOWEST, LOCKED, POSITION WITH SRX3. WILL CONTINUE PLAN OF CARE. Addendum: 11/07/19 at 0746 by AYANNA MAYA RN WRONG USERNAME. RE-CHARTED.
--- NOTE | 2019-11-07 07:31 | NUR ---
MS RN NOTES RECEIVED PT IN BED, AWAKE, A/OX 3, GEORGIAN SPEAKING BUT ABLE TO UNDERSTAND AND SPEAK PORTUGUESE. PT TOLERATING RA, WITH NO ACUTE RESPIRATORY DISTRESS NOTED. PT DENIES ANY PAIN OR DISCOMFORT AT THIS TIME. PT DENIES ANY QUESTIONS OR CONCERN. PIV TO LAC G20, FLUSHED WITH NS, INTACT AND OPERATIONAL. PT KEPT COMFORTABLE IN BED. CALL LIGHT KEPT WITHIN REACH. PT'S BED IN LOWEST, LOCKED, POSITION WITH SRX3. WILL CONTINUE PLAN OF CARE.
[2019-11-07 07:46] LABS: CALCIUM, SERUM 8.1 mg/dL (8.5-10.1); CREATININE 6.1 mg/dL (0.6-1.3); MAGNESIUM 2.2 mg/dL (1.8-2.4); PHOSPHORUS 5.7 mg/dL (2.5-4.9); POTASSIUM 4.9 mmol/L (3.5-5.1)
[2019-11-07 08:00] VITALS: BP 108/63
[2019-11-07] MEDS: MULTIVIT W/MINERALS 1 TAB TABLET PO SCH (08:22)
[2019-11-07] MEDS: FOLIC ACID 1 MG TABLET PO SCH (08:22)
[2019-11-07] MEDS: RIFAXIMIN 550 MG TABLET PO SCH ×2 (08:22→17:11)
[2019-11-07] MEDS: MIDODRINE HCL (5MG) 5 MG TABLET PO SCH ×3 (08:27→17:12)
[2019-11-07] MEDS: CITRIC ACID/SODIUM CITRATE (BICITRA)15 ML UDC PO SCH ×4 (08:55→21:02)
[2019-11-07] MEDS: LACTULOSE 10 G/15 ML UDC (PYXIS) PO SCH ×5 (08:55→21:02)
--- NOTE | 2019-11-07 11:08 | NUR ---
MS RN NOTES CALLED AND SPOKE TO PHARMACIST/YASMINE REGARDING LACTULOSE DOSE AT 1056. PT JUST HAD LACTULOSE AT 9 AM. YASMINE STATED TO SKIP THE FIRST DOSE AND RESUME THE DOSE AT 1300.
--- NOTE | 2019-11-07 11:59 | NUR ---
MS RN NOTES FSBS OF 65, RN OFFERED ORANGE JUICE. WILL REASSESS SUGAR.
--- NOTE | 2019-11-07 14:33 | NUR ---
MS RN NOTES CALLED PHARMACY AND SPOKE TO DOUG. OCTREOTIDE WILL BE DELIVERED SOON. WILL ADMINISTER WHEN MEDICINE COMES AVAILABLE.
--- NOTE | 2019-11-07 15:22 | NUR ---
MS RN NOTES ID/LAKISHA PRESENT AT THE UNIT CONCERNED ABOUT THE FSBS DURING IN AM. INFORMED HOSPITALIST/TS MADE AWARE, ORDERED OKAY TO DISCONTINUE LANTUS NOW. WILL CONTINUE TO MONITOR. WILL ENDORSE TO INCOMING NIGHT NURSE WELL.
[2019-11-07 18:34] VITALS: BP 129/75
--- NOTE | 2019-11-07 18:52 | NUR ---
MS RN NOTES PT REMAINS IN BED, AWAKE, A/OX 3, MALTESE SPEAKING BUT ABLE TO UNDERSTAND AND SPEAK ETHIOPIAN. PT TOLERATING RA, WITH NO ACUTE RESPIRATORY DISTRESS NOTED. PT DENIES ANY PAIN OR DISCOMFORT AT THIS TIME. PIV TO LAC G20, FLUSHED WITH NS, INTACT AND OPERATIONAL. PT KEPT COMFORTABLE IN BED. ALL NEEDS AND CARE ATTENDED. CALL LIGHT KEPT WITHIN REACH. PT'S BED IN LOWEST, LOCKED, POSITION WITH SRX3. WILL ENDORSE TO INCOMING NIGHT NURSE FOR ANDREA.
--- NOTE | 2019-11-07 19:10 | NUR ---
RN MS OPENING NOTES RECEIVED PATIENT IN BED SLEEPING EASILY AROUSABLE RESPIRATIONS EVEN AND UNLABORED WITH EQUAL RISE AND FALL OF CHEST, DENIES ANY PAIN OR DISCOMFORT AT THIS TIME, IV SITE TO LEFT AC #20G INTACT AND PATENT, NO REDNESS, NO INFILTRATION PRESENT, ORIENTED TO STAFF AND CALL LIGHT AND KEPT WITHIN REACH, SAFETY PRECAUTIONS IN PLACE, LOW BED AND LOCKED , ALL NEEDS ATTENDED AT THIS TIME, WILL CONTINUE TO MONITOR. REMAINS COMFORTABLE.
[2019-11-07 20:00] VITALS: BP 102/53
[2019-11-07 20:18] VITALS: BP 102/53
[2019-11-07] MEDS: *INSULIN REGULAR(HUMULIN R)HUM 100 UNIT/ML VIAL SQ PRN (21:14)
--- NOTE | 2019-11-07 21:14 | NUR ---
rn ms notes accucheck 172 insulin held per patient he did not eat well today and had episode of hypoglycemia. reports poor po intake. does not want to take it at this time.
--- NOTE | 2019-11-07 21:40 | NUR ---
rn ms notes sandostatin not in [employer] or cassette faxed to supervisor ski production awaiting medication arrival
[2019-11-07] MEDS ORDERED: OCTREOTIDE 100 MCG/ML VIAL ONE (22:25)
[2019-11-08] MEDS: OCTREOTIDE 100 MCG/ML VIAL SQ SCH ×3 (05:04→21:11)
[2019-11-08] MEDS: CEFAZOLIN 1 GM in IV D5W 50 ML IV SCH ×2 (05:04→15:41)
--- NOTE | 2019-11-08 05:57 | NUR ---
rn ms notes patient refused am labs, attempted to educate. patient was irritable, refused stated " nicolette rice a nolberto".
[2019-11-08] MEDS: INSULIN REGULAR, HUMAN 100 UNIT/ML 3 ML VIAL SQ PRN (06:30)
[2019-11-08] MEDS: BLOOD SUGAR DIAGNOSTIC 1 EACH STRIP IN SCH ×4 (06:30→21:12)
--- NOTE | 2019-11-08 06:32 | NUR ---
RN MS CLOSING NOTES PATIENT IN BED SLEEPING EASILY AROUSABLE RESPIRATIONS EVEN AND UNLABORED WITH EQUAL RISE AND FALL OF CHEST, DENIES ANY PAIN OR DISCOMFORT AT THIS TIME, IV SITE TO LEFT AC #20G INTACT AND PATENT, NO REDNESS, NO INFILTRATION PRESENT, CALL LIGHT KEPT WITHIN REACH, SAFETY PRECAUTIONS IN PLACE, LOW BED AND LOCKED , ALL NEEDS ATTENDED AT THIS TIME, WILL CONTINUE TO MONITOR. REMAINS COMFORTABLE. ACCUCHECK 97, NO INSULIN GIVEN THROUGHOUT SHIFT.WILL ENDORSE TO NEXT SHIFT.
--- NOTE | 2019-11-08 07:30 | NUR ---
RN Opening note Received patient in bed, AO x 3, able to responds all stimuli Does no appears pain or discomfort. Respiratory even and unlabored in room air, no distress observed, Skin is warm to touch, kept clean/dry. Keep bed in locked for with elevated HOB for ensure airway and aspiration precaution. Call light within reach, will continue to monitor.
[2019-11-08 08:00] VITALS: BP 114/71
[2019-11-08] MEDS: LACTULOSE 10 G/15 ML UDC (PYXIS) PO SCH ×6 (08:39→21:11)
[2019-11-08] MEDS: CITRIC ACID/SODIUM CITRATE (BICITRA)15 ML UDC PO SCH ×6 (08:39→21:12)
[2019-11-08] MEDS: MULTIVIT W/MINERALS 1 TAB TABLET PO SCH ×2 (08:40→08:49)
[2019-11-08] MEDS: MIDODRINE HCL (5MG) 5 MG TABLET PO SCH ×4 (08:40→16:47)
[2019-11-08] MEDS: FOLIC ACID 1 MG TABLET PO SCH ×2 (08:40→08:49)
[2019-11-08] MEDS: RIFAXIMIN 550 MG TABLET PO SCH ×4 (08:40→16:52)
--- NOTE | 2019-11-08 09:00 | NUR ---
Patient refused blood draw for labs, stated "Shut up" to staff.
[2019-11-08] MEDS: *INSULIN REGULAR(HUMULIN R)HUM 100 UNIT/ML VIAL SQ PRN ×2 (12:22→21:21)
[2019-11-08 13:36] LABS: ALBUMIN 1.8 g/dL (3.4-5.0); BASOPHILS # (AUTO) 0.1 /CMM (0.0-0.2); BILIRUBIN,TOTAL 0.2 mg/dL (0.2-1.0); CALCIUM, SERUM 7.9 mg/dL (8.5-10.1); EOSINOPHILS % (AUTO) 10.1 % (0.0-6.0); HEMATOCRIT 26 % (39-51); HEMOGLOBIN 8.3 g/dL (13.5-17.5); LYMPHOCYTES # (AUTO) 1.6 /CMM (0.8-4.8); LYMPHOCYTES % (AUTO) 21.5 % (20.0-44.0); MEAN CORPUSCULAR HGB CONC 32 g/dl (31.0-36.0); MEAN CORPUSCULAR VOLUME 96 fL (80-96); MONOCYTES # (AUTO) 0.3 /CMM (0.1-1.30); NEUTROPHILS # (AUTO) 4.6 /CMM (1.8-8.9); NEUTROPHILS % (AUTO) 63.4 % (43.0-81.0); PHOSPHORUS 6.2 mg/dL (2.5-4.9); PLATELET COUNT (AUTO) 166 /CMM (150-450); POTASSIUM 4.9 mmol/L (3.5-5.1); RED BLOOD CELL COUNT(AUTO) 2.72 MIL/uL (4.5-6.0); TOTAL PROTEIN, SERUM 4.7 g/dL (6.4-8.2); WHITE BLOOD COUNT (AUTO) 7.2 K/uL (4.3-11.0)
--- NOTE | 2019-11-08 14:34 | NUR ---
Patient noticed positive gram +cocci from blood couture, informed .
[2019-11-08 16:00] VITALS: BP 127/76
--- NOTE | 2019-11-08 16:47 | NUR ---
Increase BP 127/76, will hold midodrine.
--- NOTE | 2019-11-08 18:28 | NUR ---
RN Closing note Patient in bed comfortably, does no appears pain or distress, skin is warm to touch, kept clean/dry, intact IV site, changed dressing for s/p thoracentesis and biopsy. Respiratory even and unlabored on room air 100%, no distress observed. No s/s of adverse reaction observed from therapy, encourage oral fluid intake as tolerated. Keep bed in locked with elevated HOB for ensure airway and aspiration precaution. Call light within reach, will endorse faculty i on call medical assistant.
--- NOTE | 2019-11-08 19:05 | NUR ---
RN MS OPENING NOTES RECEIVED PATIENT IN BED SLEEPING EASILY AROUSABLE RESPIRATIONS EVEN AND UNLABORED WITH EQUAL RISE AND FALL OF CHEST, DENIES ANY PAIN OR DISCOMFORT AT THIS TIME, IV SITE TO LEFT AC #20G INTACT AND PATENT, NO REDNESS, NO INFILTRATION PRESENT, ORIENTED TO STAFF AND CALL LIGHT AND KEPT WITHIN REACH, SAFETY PRECAUTIONS IN PLACE, LOW BED AND LOCKED, BSC OFFERED, LINENS CHANGED, PERINEAL CARE PROVIDED, GOWN CHANGED , ALL NEEDS ATTENDED AT THIS TIME, WILL CONTINUE TO MONITOR. REMAINS COMFORTABLE.
[2019-11-08 20:00] VITALS: BP 130/85
[2019-11-08 20:19] VITALS: BP 130/85
--- NOTE | 2019-11-09 00:56 | NUR ---
RN MS NOTES PATIENT EXPRESSED " I FEEL LIKE I HAVE WATER BUILD UP AGAIN IN MY STOMACH, I WANT ANOTHER PARACENTESIS PLEASE, I HAVE PAIN 10/10, I FELT OFF THIS MORNING BUT I DIDN'T SAY ANYTHING". UPON ASSESSMENT NOTED ABDOMEN DISTENTION AND HARD TO TOUCH, PER PATIENT STATES " IT WASNT THIS DISTENDED." DR. HARLEY MADE AWARE OF PATIENT CONCERNS AND REQUEST, NEW ORDER READ BACK AND CARRIED OUT FOR US GUIDED PARACENTESIS IN THE AM AND PT/PTT LABS TO BE DRAWN WITH AM LABS. PATIENT MADE AWARE VERBALIZES HE UNDERSTANDS.
[2019-11-09] MEDS: MORPHINE SULFATE INJ 2 MG/ML DISP.SYRIN IV PRN (01:07)
--- NOTE | 2019-11-09 01:07 | NUR ---
RN MS NOTES OFFERED PAIN MEDICATION PRN MORPHINE . PATIENT AGREED PRN GIVEN ORDERED, VITAL SIGNS ASSESSED PRIOR TO ADMINISTRATION WNL. 127/87, 50,18,97%,97.6. WILL CONTINUE TO MONITOR FOR EFFECTIVENESS.
--- NOTE | 2019-11-09 01:36 | NUR ---
RN MS NOTES MORPHINE EFFECTIVE PATIENT IS SLEEPING AT THIS TIME, WILL CONTINUE TO MONITOR.
[2019-11-09] MEDS: CEFAZOLIN 1 GM in IV D5W 50 ML IV SCH ×2 (05:05→16:00)
[2019-11-09] MEDS: OCTREOTIDE 100 MCG/ML VIAL SQ SCH ×2 (05:05→12:28)
[2019-11-09] MEDS: INSULIN REGULAR, HUMAN 100 UNIT/ML 3 ML VIAL SQ PRN ×2 (06:27→13:41)
[2019-11-09] MEDS: BLOOD SUGAR DIAGNOSTIC 1 EACH STRIP IN SCH ×2 (06:30→12:27)
--- NOTE | 2019-11-09 06:58 | NUR ---
RN MS CLOSING NOTES PATIENT IN BED SLEEPING EASILY AROUSABLE RESPIRATIONS EVEN AND UNLABORED WITH EQUAL RISE AND FALL OF CHEST, DENIES ANY PAIN OR DISCOMFORT AT THIS TIME, IV SITE TO LEFT AC #20G INTACT AND PATENT, NO REDNESS, NO INFILTRATION PRESENT, CALL LIGHT KEPT WITHIN REACH, SAFETY PRECAUTIONS IN PLACE, LOW BED AND LOCKED, BSC OFFERED THROUGHOUT SHIFT, LINENS CHANGED, PERINEAL CARE PROVIDED, GOWN CHANGED , ALL NEEDS ATTENDED AT THIS TIME, WILL CONTINUE TO MONITOR. REMAINS COMFORTABLE AT THIS TIME, CONSENTS SIGNED FOR US GUIDED PARACENTESIS.
[2019-11-09 07:02] LABS: CALCIUM, SERUM 8.1 mg/dL (8.5-10.1); CREATININE 5.8 mg/dL (0.6-1.3); POTASSIUM 4.7 mmol/L (3.5-5.1)
--- NOTE | 2019-11-09 07:50 | NUR ---
RN Opening note Received patient in bed, AO x 3, able to responds all stimuli, does no appears pain or distress at this time. Skin is warm to touch, kept clean/dry, intact IV site SL. Respiratory even and unlabored on room air. Keep bed in locked, low bed with elevated HOB for ensure airway and aspiration precaution. Patient going have paracentesis today, called radiology but no one answer at this time, will follow up. Call light within reach, will continue to monitor.
[2019-11-09 08:00] VITALS: BP 123/87
[2019-11-09] MEDS: FOLIC ACID 1 MG TABLET PO SCH (08:44)
[2019-11-09] MEDS: CITRIC ACID/SODIUM CITRATE (BICITRA)15 ML UDC PO SCH ×3 (08:44→16:42)
[2019-11-09] MEDS: MIDODRINE HCL (5MG) 5 MG TABLET PO SCH ×3 (08:44→16:42)
[2019-11-09] MEDS: LACTULOSE 10 G/15 ML UDC (PYXIS) PO SCH ×3 (08:44→16:42)
[2019-11-09] MEDS: MULTIVIT W/MINERALS 1 TAB TABLET PO SCH (08:45)
[2019-11-09] MEDS: RIFAXIMIN 550 MG TABLET PO SCH ×2 (08:45→16:43)
--- NOTE | 2019-11-09 12:30 | NUR ---
Patient done for paracentesis, out put 5,250ml. No active bleeding on puncture site/RLQ. Will continue to monitor.
[2019-11-09 16:00] VITALS: BP 129/82
--- NOTE | 2019-11-09 16:40 | NUR ---
Patient refused IV ATB Ancef and 1700 medications.
[2019-11-09 16:49] LABS: APPEARANCE,URINE SL CLOUDY (CLEAR); BILIRUBIN,URINE NEGATIVE (NEGATIVE); BLOOD, URINE LARGE Ery/uL (NEGATIVE); COLOR,URINE YELLOW (YELLOW); KETONES,URINE NEGATIVE (NEGATIVE); LEUKOCYTE ESTERASE ,URINE NEGATIVE (NEGATIVE); NITRITE, URINE NEGATIVE (NEGATIVE); PH,URINE 6.5 (5.0-8.0); PROTEIN,URINE >=300 mg/dl (NEGATIVE); UGLUCOSE 500 MG/DL mg/dL (NEGATIVE); UROBILINOGEN,URINE 0.2 EU/dL (0.2)
--- NOTE | 2019-11-09 17:40 | NUR ---
Patient refused midline for d/c with home health for IV ATB x 2weeks, and stated "want to going home now, if I stay here nothing improve, I'll find other place!" Explained patient about the risk and consequences involved in leaving the hospital at this time, patient verbally understood. Removed IV line and ID band before patient leave, Dr. Vaca, SW, and CN made aware.
[2019-11-09] MEDS ORDERED: SPIR25TA PO (18:13)
[2019-11-09] MEDS ORDERED: FURO-144 PO (18:13)
[2019-11-09] MEDS ORDERED: RIFA550T PO (18:13)
[2019-11-09] MEDS ORDERED: Midodrine Hcl (5MG) PO (18:13)
[2019-11-09] MEDS ORDERED: CITR15SO PO (18:13)
[2019-11-09] MEDS ORDERED: Folic Acid PO (18:13)
== END 2019-11-09 18:10 | disposition home health service (06) | DRG 280 ==
LOC: ER 22:22 → ICU 10-23 00:11 → TELE 10-27 19:04 → MED 10-30 10:44 → CSC2 11-02 09:51 → MEDSG2 11-02 09:56
PROVIDERS: ADMIT Nurse Practitioner Acute Care; ATTEND Nurse Practitioner Acute Care
PROC: 0W9G3ZZ Drainage of Peritoneal Cavity, Percutaneous Approach (ICD-10-PCS; principal; 2019-10-23)
PROC: 0W9G3ZZ Drainage of Peritoneal Cavity, Percutaneous Approach (ICD-10-PCS; 2019-10-26)
PROC: 30233N1 Transfusion of Nonautologous Red Blood Cells into Peripheral Vein, Percutaneous Approach (ICD-10-PCS; 2019-11-03)
PROC: 07DR3ZX Extraction of Iliac Bone Marrow, Percutaneous Approach, Diagnostic (ICD-10-PCS; 2019-11-06)
DX: K70.31 Alcoholic cirrhosis of liver with ascites (principal); E11.10 Type 2 diabetes mellitus with ketoacidosis without coma; N17.0 Acute kidney failure with tubular necrosis; K72.90 Hepatic failure, unspecified without coma; K86.1 Other chronic pancreatitis; D47.2 Monoclonal gammopathy; E87.1 Hypo-osmolality and hyponatremia; K76.6 Portal hypertension; E43 Unspecified severe protein-calorie malnutrition; D63.8 Anemia in other chronic diseases classified elsewhere; E86.9 Volume depletion, unspecified; E72.20 Disorder of urea cycle metabolism, unspecified; Z86.018 Personal history of other benign neoplasm; R78.81 Bacteremia; B95.61 Methicillin susceptible Staphylococcus aureus infection as the cause of diseases classified elsewhere; K42.9 Umbilical hernia without obstruction or gangrene; Z83.3 Family history of diabetes mellitus; Z80.9 Family history of malignant neoplasm, unspecified; N39.0 Urinary tract infection, site not specified; G93.41 Metabolic encephalopathy
CPT/HCPCS: 36415; 36600; 71045-TC; 73700-TC; 76705-TC; 76942-TC; 77075-TC; 80048-TC; 80053-TC; 80061-TC; 80076-TC; 80202-TC; 80305; 81000-TC; 82010-TC; 82040-TC; 82105; 82140-TC; 82232; 82550-TC; 82570-TC; 82728-TC; 82784; 82803-TC; 82962-TC; 83540-TC; 83605-TC; 83690-TC; 83735-TC; 83935-TC; 83970; 84100-TC; 84155; 84155-TC; 84165; 84300-TC; 84443-TC; 84484-TC; 85025-TC; 85027-TC; 85610-TC; 85652-TC; 85730-TC; 86225; 86235; 86334; 86706; 86803; 86850-TC; 86921-TC; 87040-TC; 87070-TC; 87081-TC; 87086-TC; 87340; 87806; 88108-TC; 88305-TC; 88312-TC; 89051-TC; 93307-TC; 97110-TC; 97116-TC; 97530-TC; A4216; A6253; A6403; G0378; J0690; J1644; J1650; J1815; J2270; J2354; J2370; J3370; J3480; J3490; J7030; J7042; J7050; J7060; J7070; P9016-BL; P9047; U0003-CS